=== PATIENT | male | born 1940 | race Caucasian/White ===

== ENCOUNTER → 2017-12-16 | Outpatient (CLI) | payer OTHER, BC ==
[~2017-12-16] MED LIST: AMLO5TAB2 PO; ASPI81TA28 PO; CHOL2000 PO; FURO-85 PO; INSDGI SC; INSU100I2 SC; LEVO125T5 PO; LOSA100T65 PO; OMEP20TA14 PO; SIMV40TA2 PO; TAMS0.4C38 PO; [UNRECOGNIZED DRUG - CODE] SC
--- NOTE | 2017-12-16 10:50 | DIAGNOSTIC IMAGING REPORT ---
R FINGER(S) MIN 2 VIEWS HISTORY: 77 years-old Male RIGHT INDEX FINGER PAIN acute right index finger pain COMPARISON: None available TECHNIQUE: 3 views of the right index finger FINDINGS: Mild metacarpophalangeal and interphalangeal degenerative changes without acute fracture or dislocation. 2 mm radiodensity dorsal to the second metatarsal head suggests fragmented osteophyte. Mild soft tissue swelling. IMPRESSION: Mild soft tissue swelling without fracture. The above report was generated using voice recognition software. It may contain grammatical, syntax or spelling errors. Electronically signed by: Prabhakar Sandhu M.D. 12/16/2017 10:48 AM Dictated Date/Time: 12/16/2017 10:47 AM
== END | disposition home or self-care (01) ==
LOC: C.RDSM 17:45
PROVIDERS: ATTEND Family Medicine
DX: M79.644 Pain in right finger(s) (principal)

== ENCOUNTER 2022-01-21 07:52 | Inpatient (IN) ==
--- NOTE | 2022-01-21 08:09 | Emergency Department Note ---
Impression & Plan LUE weakness, HTN (hypertension), Anemia, High serum chloride ED Provider Note NAME: EMMY ALEXANDER AGE: 81 SEX: M : 1940 ARRIVES VIA: Walk-In INFORMANT: Patient ED PROVIDER(S): Fredo Redd DO CHIEF COMPLAINT: left shoulder weakness HPI: Patient is an 81-year-old male with a past medical history of diabetes, hypertension, CKD that presents the ER for left arm weakness. He went to bed last night around 10 PM. He is not sure exactly when he fell asleep but he thinks it was some around 4 AM. He notes when he woke up this morning he was having trouble lifting his left arm above 90 degrees. He has no pain in the shoulder. He has chronic neck issues. Denies any headache or change in vision. No chest pain or shortness of breath. No nausea, vomiting, or diarrhea. No dysuria, urgency, or frequency. No other exacerbating or remitting factors. ROS: See above HPI for pertinent positives & negatives. A total of 10 systems reviewed and were otherwise negative. PAST MEDICAL HISTORY:See Below PAST SURGICAL HISTORY:See Below FAMILY HISTORY:See Below SOCIAL HISTORY:See Below HOME MEDICATIONS:See Below ALLERGIES:See Below VITALS:See Below PHYSICAL EXAMINATION: GENERAL: Sitting up in bed, alert, well appearing, well nourished, no distress, non-toxic EYE EXAM: normal conjunctiva. PERRL and EOM's intact. OROPHARYNX: no exudate, no erythema, lips, buccal mucosa, and tongue normal and mucous membranes are moist NECK: supple, no nuchal rigidity, no adenopathy, non-tender LUNGS: Clear to auscultation. Normal chest wall mechanics HEART: no murmurs, S1 normal and S2 normal ABDOMEN: abdomen soft, non-tender, normo-active bowel sounds, no masses, no rebound or guarding. BACK: Back is symmetrical on inspection and there is no deformity, no midline tenderness, no CVA tenderness. SKIN: no rashes and no bruising UPPER EXTREMITIES: upper extremities are grossly normal. LOWER EXTREMITIES: No pitting edema. NEURO EXAM: Normal sensorium, cranial nerves II-XII intact, normal speech, trouble with AB ducting left arm greater than 90 degrees. No weakness of legs. No drift. Finger to nose intact. Gross sensation intact. MEDICAL DECISION MAKING: Patient is an 81-year-old male who presents ER for left upper extremity weakness. On evaluation he has weakness with abduction greater than 90 degrees. IV was established blood work was obtained. On that to have a telestroke evaluation however per charge only possibility was to call a stroke alert. This gentleman is not a tPA candidate based on his NIH and last known well. I do favor that this likely musculoskeletal but cannot be certain consequently he did want a neurologic evaluation. Labs show no leukocytosis. Mild anemia 11.9. INR unremarkable. BMP with creatinine 1.9. LFTs bilirubin was unremarkable. COVID was negative. CT angios of the head and neck show some mild internal carotid disease. Patient was evaluated by neurology. They recommended MRIs and Dopplers of the carotids and admission for further work-up. Based on the results they will further discuss Plavix and additional treatment. Discussed with Belia for further evaluation. Triage Nursing notes reviewed. Limited review of prior medical records performed Vital Signs: reviewed and remarkable for HTN Differential diagnosis: Differential Diagnosis includes but is not limited to ischemic Stroke, hemorrhagic stroke, bells palsy, mass, neoplasm, migraine headache, seizure, subarachnoid hemorrhage, TIA, and transient global amnesia. ER treatment provided: See below Diagnostics interpreted by me: ECG: SR with a rate of 68 Normal axis No PVCs QTC 487 Cardiac Monitoring: An order was placed for continuous cardiac monitoring. The monitor shows a rate of 70 with sinus rhythm. Laboratory studies: As stated above and show below. Imaging studies: CT angios of the head and neck showed no acute pathology Consultation(s): [facility] Discussed with Belia from [facility] service Procedures: none Critical Care: None Past Med/Surg History Medical History (Updated 01/21/22 @ 13:08 by Fredo Redd DO) Cardiac murmur HX OF PREVIOUSLY AUSCULTATED MURMUR. PT HAD ECHO AND CARDIAC WORKUP. FOLLOWS WITH DR. VINES CKD (chronic kidney disease) stage 4, GFR 15-29 ml/min Diabetes mellitus, type 2 Diverticular disease Fatty liver GERD (gastroesophageal reflux disease) History of skin cancer EXCISION FROM THIGH Hyperlipidemia Hypertension Hypothyroidism Secondary hyperparathyroidism Surgical History History of arthroscopy B/L SHOULDER REPAIRS History of cataract extraction with lens replacement History of cholecystectomy History of colonoscopy History of laminectomy CERVIAL LAMI S/T SPINAL STENOSIS. History of prostate surgery HX OF GREENLIGHT TURP 10+ YEARS AGO History of surgery on arm LIGAMENT History of tonsillectomy Family History (Updated 01/21/22 @ 10:02 by Beila Vitale PA-C) Father Colorectal cancer Mother No problems noted. Denies family history of Stroke Social History Smoking Status: Never smoker Cigarettes Per Day: 0; Second Hand Exposure: No; Hx Alcohol Use: Yes Alcohol type: other Hx Substance Use: No Preferred Language: Polish Communication Ability: Effective Stereotyper Required: No Beliefs That Will Affect Care: None Current Living Situation: Spouse Current Living Situation Comment: Other Information That Helps Us Care for You: No Feels Safe at Home: Yes Safety Concerns: Feels Safe At This Time Assistive Devices: None Allergies Allergies Allergy/AdvReac Type Severity Reaction Status Date / Time Penicillins Allergy Unknown HIVES Verified 01/21/22 09:55 SULFA DRUGS Allergy Unknown GI issues Uncoded 01/21/22 09:55 Home Meds Home Medications Medication Instructions Recorded Confirmed amlodipine 5 mg tablet 5 mg PO QAM 01/02/19 01/21/22 cholecalciferol (vitamin D3) 50 2,000 unit PO QAM 01/02/19 01/21/22 mcg (2,000 unit) capsule furosemide 20 mg tablet 40 mg PO DAILY 01/02/19 01/21/22 insulin glargine U-300 conc 300 50 unit SUBCUT BID 01/02/19 01/21/22 unit/mL (1.5 mL) subcutaneous pen (Toujeo SoloStar U-300 Insulin) insulin lispro 100 unit/mL 40 unit SUBCUT AC 01/02/19 01/21/22 subcutaneous pen (Humalog KwikPen (U-100) Insulin) omeprazole 20 mg capsule,delayed 20 mg PO QAM 01/02/19 01/21/22 release pramlintide 2,700 mcg/2.7 mL 120 mcg SUBCUT BID 01/02/19 01/21/22 subcutaneous pen injector (SymlinPen 120) alfuzosin 10 mg tablet,extended 10 mg PO DAILY 01/21/22 01/21/22 release 24 hr allopurinol 100 mg tablet 100 mg PO BID 01/21/22 01/21/22 aspirin 81 mg chewable tablet 81 mg PO DAILY 01/21/22 01/21/22 coenzyme Q10 100 mg capsule 100 mg PO DAILY 01/21/22 01/21/22 finasteride 5 mg tablet 5 mg PO DAILY 01/21/22 01/21/22 levothyroxine 137 mcg tablet 137 mcg PO DAILY 01/21/22 01/21/22 losartan 50 mg tablet 50 mg PO DAILY 01/21/22 01/21/22 omega-3 fatty acids 1,000 mg PO BID 01/21/22 01/21/22 rosuvastatin 20 mg tablet 20 mg PO DAILY 01/21/22 01/21/22 sildenafil 50 mg tablet 50 mg PO USEASDIRECTD 01/21/22 01/21/22 Results & Data (ED) Vital Signs Vital Signs - 24 hr 01/21/22 07:55 01/21/22 08:38 01/21/22 08:45 Temperature 36.6 C Temperature Source Temporal Artery Scan Pulse Rate 74 66 73 Pulse Rate from SpO2 Sensor 66 68 Respiratory Rate 16 25 H 19 Blood Pressure 171/84 H 145/81 H 155/78 H Blood Pressure Mean 113 102 103 Pulse Oximetry 95 97 96 Oxygen Delivery Method Room Air Room Air Sepsis Recent Fever Within 48 Hours No Sepsis New/Unexplained Change in Mental Status No Sepsis Action Taken by Nursing No Action Required 01/21/22 09:00 01/21/22 09:15 01/21/22 09:30 Temperature Temperature Source Pulse Rate 66 63 66 Pulse Rate from SpO2 Sensor 63 63 64 Respiratory Rate 15 21 Blood Pressure 154/77 H 158/89 H 163/89 H Blood Pressure Mean 102 112 113 Pulse Oximetry 98 96 95 Oxygen Delivery Method Sepsis Recent Fever Within 48 Hours Sepsis New/Unexplained Change in Mental Status Sepsis Action Taken by Nursing Laboratory Data Result diagrams: 01/21/22 08:08 01/21/22 08:08 Lab Results 01/21/22 01/21/22 01/21/22 Range/Units 08:08 08:08 08:08 WBC 5.80 (4.8-10.8) K/uL RBC 3.90 L (4.7-6.1) M/uL Hgb 11.9 L (14.0-18.0) g/dL Hct 34.2 L (42-52) % MCV 87.7 (80-100) fL MCH 30.5 (25-34) pg MCHC 34.8 (32-36) g/dL RDW Std Deviation 44.8 (36.4-46.3) fL RDW Coeff of Rosalee 14.0 (11.5-14.5) % Plt Count 183 (130-400) K/uL MPV 9.5 (7.4-10.4) fL Immature Gran % (Auto) 0.2 % Neut % (Auto) 60.8 % Lymph % (Auto) 25.7 % Sierra % (Auto) 7.4 % Eos % (Auto) 5.7 % Baso % (Auto) 0.2 % Neut # (Auto) 3.53 (1.4-6.5) K/uL Lymph # (Auto) 1.49 (1.2-3.4) K/uL Sierra # (Auto) 0.43 (0.11-0.59) K/uL Eos # (Auto) 0.33 (0-0.5) K/uL Baso # (Auto) 0.01 (0-0.2) K/uL Immature Gran # (Auto) 0.01 (0.00-0.02) K/uL PT 10.5 (9.0-12.0) Seconds INR 1.0 (0.9-1.1) APTT 24.3 (21.0-31.0) Seconds PTT Ratio 0.9 Sodium 140 (136-145) mmol/L Potassium 3.5 (3.5-5.1) mmol/L Chloride 109 H (98-107) mmol/L Carbon Dioxide 22 (21-32) mmol/L Anion Gap 9 (3-11) BUN 33 H (6-23) mg/dl Creatinine 1.90 H (0.6-1.4) mg/dl Est Cr Clr Drug Dosing 40.5 ml/min Est GFR ( Amer) 37.5 ml/min Est GFR (Non-Af Amer) 32.3 ml/min BUN/Creatinine Ratio 17.4 (10-20) Glucose 144 H (70-99(Fasting)) mg/dl Calcium 9.4 (8.5-10.1) mg/dl Magnesium 1.9 (1.7-2.4) mg/dl Total Bilirubin 0.5 (0.2-1.0) mg/dl AST 21 (13-39) U/L ALT 24 (7-52) U/L Alkaline Phosphatase 51 (34-104) U/L Troponin I High Sens 24.0 H (0-20) pg/ml Total Protein 6.9 (6.0-8.3) gm/dl Albumin 4.1 (3.4-5.0) gm/dl Globulin 2.8 (2.5-4.0) gm/dl Albumin/Globulin Ratio 1.5 (0.9-2) Administered Medications Discontinued Medications Aspirin (Aspirin 81 Mg Ectab) 81 mg PO NOW STA Stop: 01/21/22 10:23 Last Admin: 01/21/22 11:21 Dose: Not Given Documented by: [id number] Aspirin (Aspirin 325 Mg Ectab) 325 mg PO NOW STA Stop: 01/21/22 10:42 Last Admin: 01/21/22 11:33 Dose: 325 mg Documented by: [id number] Aspirin (Aspirin Chew 324 Mg) Confirm Administered Dose 324 mg .ROUTE .STK-MED ONE Stop: 01/21/22 10:44 Last Admin: 01/21/22 11:20 Dose: Not Given Documented by: [id number] Gadobutrol (Gadobutrol 65ml Vial) 12.3 ml IV ONCE ONE Stop: 01/21/22 12:25 Last Admin: 01/21/22 12:14 Dose: 12.3 ml Documented by: [id number] Lorazepam (Lorazepam 2 Mg/1 Ml Vial) 0.5 mg IV ONE ONE Stop: 01/21/22 11:01 Last Admin: 01/21/22 11:31 Dose: 0.5 mg Documented by: [id number] Imaging Data Radiologist's Impression: Chest X-Ray 01/21/22 08:06 XR chest 1V portable CLINICAL HISTORY: Stroke Like Symptoms COMPARISON STUDY: Chest radiograph December 09, 2011. FINDINGS: Lung volumes are normal. Lungs are clear. There is no pneumothorax or pleural effusion. Borderline cardiomegaly. Mediastinal contours are normal. There is no evidence for pulmonary edema. IMPRESSION: No acute cardiopulmonary findings. ACT 112: Negative or not required by law. Electronically signed by: Zia Thomas M.D. 01/21/2022 8:[address] 01/21/22 08:06 CT OF THE HEAD WITHOUT CONTRAST CLINICAL HISTORY: Stroke Like Symptoms. Left arm weakness. COMPARISON STUDY: No previous studies for comparison. TECHNIQUE: Helical axial images of the head were obtained without IV contrast. Automated exposure control was utilized for the study. A dose lowering technique was utilized adhering to the principles of ALARA. FINDINGS: No acute intracranial hemorrhage, midline shift or mass effect is present. White matter hypodensities favor small vessel disease. The ventricular system is unremarkable. The basal cisterns are patent. No extra-axial colle ctions are present. There are no findings to suggest acute dural sinus thrombosis or acute territorial infarct. No significant calvarial abnormalities are present. There is mild sinus mucosal thickening. IMPRESSION: No acute intracranial findings. ACT 112: Negative or not required by law. Electronically signed by: Zia Thomas M.D. 01/21/2022 8:43 AM Head CTA 01/21/22 08:06 CT angio head w con CLINICAL HISTORY: 81 years-old Male with Stroke Like Symptoms. Acute strokelike symptoms COMPARISON STUDY: CT head and CTA head and neck studies of same day TECHNIQUE: Following the IV administration of 120 mL cc of Optiray, CT angiogram of the brain was performed from the skull base to the vertex. Images are revie wed in the axial, sagittal, and coronal planes. 3-D MIPS images are created and assessed. IV contrast was administered without complication. All measurements were obtained according to NASCET criteria. A dose lowering technique was utilized adhering to the principles of ALARA. CT DOSE: 1236.28 mGy.cm FINDINGS: CT ANGIOGRAM OF THE BRAIN: Streak artifact from dental amalgam hardware limits the study. Atherosclerosis of the cavernous, clinoid and supraclinoid segments without high-grade stenosis. There is approximately 50% stenosis of the right supraclinoid segment, image 104. The imaged bilateral internal carotid arteries are patent. The bilateral anterior and middle cerebral arteries are also patent. Atherosclerosis of the V4 segments of the vertebral arteries without high-grade stenosis. The verteb robasilar system and posterior cerebral arteries are widely patent. There is no aneurysm, high-grade stenosis, or proximal branch occlusion identified. Dural sinuses appear patent. Mild mucosal thickening of the maxillary sinuses. IMPRESSION: Unremarkable CTA of the head. ACT 112: Negative or not required by law. The above report was generated using voice recognition software. It may contain grammatical, syntax or spelling errors. Electronically signed by: Juanpablo Sandhu M.D. 01/21/2022 8:55 AM Neck CTA 01/21/22 08:06 CT ANGIOGRAPHY OF THE NECK WITH CONTRAST CLINICAL HISTORY: Stroke Like Symptoms COMPARISON STUDY: No previous studies for comparison. Technique: CT angiography of the carotid and vertebral arteries was obtained using Optiray and 3D reconstruction on an independent workstation. NASCET criteria was utilized. Automated exposure control was utilized for the study. A dose lowering technique was utilized adhering to the principles of ALARA. Findings: Visualized portions of the lung apices are unremarkable. There is no cervical lymphadenopathy. Postoperative findings within the cervical spine are noted. There is no acute cervical spine fracture. There is moderate plaque within the left carotid bifurcation without stenosis. Origins of the bilateral vertebral arteries are suboptimally assessed on this exam given motion artifact. There is no dissection within the neck. No aneurysm within the neck. Note is made of extensive calcified and noncalcified plaque within the right carotid bifurcation. This results in 80% stenosis of the proximal right internal carotid artery. Stenosis extends for 3 mm. The caliber of the vessel at site of stenosis is 1.3 mm. The caliber of the vessel distally is 5 mm. IMPRESSION: 1. 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 2. Moderate plaque within the left carotid bifurcation without stenosis. 3. Suboptimal evaluation of the vertebral artery origins due to motion artifact. ACT 112: Negative or not required by law. Electronically signed by: Zia Thomas M.D. 01/21/2022 8:50 AM Discharge Plan Visit Data Chief Complaint: Neuro Symptoms/Deficit Stated Complaint: L ARM ISSUES, CAN'T LIFT OR USE IT, NO PAIN ED Provider: Fredo Redd Discharge Problem: LUE weakness, HTN (hypertension), Anemia, High serum chloride Patient Disposition: Admitted As Inpatient Discharge Instructions Interventions: ED Discharge Assessment Last Done: 01/21/22 11:58 Discharge Problem: HTN (hypertension) Qualifiers: Hypertension type: unspecified Qualified Code(s): I10 - Essential (primary) hypertension Anemia Qualifiers: Anemia type: unspecified type Qualified Code(s): D64.9 - Anemia, unspecified
[2022-01-21 08:30] LABS: Basophils # (auto) 0.01 K/uL (0-0.2); Basophils % (auto) 0.2 %; Eosinophils # (auto) 0.33 K/uL (0-0.5); Eosinophils % (auto) 5.7 %; Hematocrit (blood only) 34.2 % (42-52); Hemoglobin 11.9 g/dL (14.0-18.0); Immature Granulocytes # (auto) 0.01 K/uL (0.00-0.02); Immature Granulocytes % (auto) 0.2 %; Lymphocytes # (auto) 1.49 K/uL (1.2-3.4); Lymphocytes % (auto) 25.7 %; Mean Corpuscular Hemoglobin 30.5 pg (25-34); Mean Corpuscular Hgb Conc 34.8 g/dL (32-36); Mean Corpuscular Volume 87.7 fL (80-100); Mean Platelet Volume 9.5 fL (7.4-10.4); Monocytes # (auto) 0.43 K/uL (0.11-0.59); Monocytes % (auto) 7.4 %; Neutrophils # (auto) 3.53 K/uL (1.4-6.5); Neutrophils % (auto) 60.8 %; Platelet Count 183 K/uL (130-400); RDW Standard Deviation 44.8 fL (36.4-46.3)
[2022-01-21 08:39] LABS: Partial Thromboplastin Ratio 0.9; Partial Thromboplastin Time 24.3 Seconds (21.0-31.0); Prothrombin Time 10.5 Seconds (9.0-12.0)
--- NOTE | 2022-01-21 08:44 | CT Scan Report ---
CT OF THE HEAD WITHOUT CONTRAST CLINICAL HISTORY: Stroke Like Symptoms. Left arm weakness. COMPARISON STUDY: No previous studies for comparison. TECHNIQUE: Helical axial images of the head were obtained without IV contrast. Automated exposure con trol was utilized for the study. A dose lowering technique was utilized adhering to the principles o f ALARA. FINDINGS: No acute intracranial hemorrhage, midline shift or mass effect is present. White matter hyp odensities favor small vessel disease. The ventricular system is unremarkable. The basal cisterns are patent. No extra-axial collections are present. There are no findings to suggest acute dural sinus t hrombosis or acute territorial infarct. No significant calvarial abnormalities are present. There is mild sinus mucosal thickening. IMPRESSION: No acute intracranial findings. ACT 112: Negative or not required by law. Electronically signed by: Zia Thomas M.D. 01/21/2022 8:43 AM
--- NOTE | 2022-01-21 08:51 | CT Scan Report ---
CT ANGIOGRAPHY OF THE NECK WITH CONTRAST CLINICAL HISTORY: Stroke Like Symptoms COMPARISON STUDY: No previous studies for comparison. Technique: CT angiography of the carotid and vertebral arteries was obtained using Optiray and 3D rec onstruction on an independent workstation. NASCET criteria was utilized. Automated exposure control was utilized for the study. A dose lowering technique was utilized adhering to the principles of ALA RA. Findings: Visualized portions of the lung apices are unremarkable. There is no cervical lymphadenopat hy. Postoperative findings within the cervical spine are noted. There is no acute cervical spine frac ture. There is moderate plaque within the left carotid bifurcation without stenosis. Origins of the b ilateral vertebral arteries are suboptimally assessed on this exam given motion artifact. There is no dissection within the neck. No aneurysm within the neck. Note is made of extensive calcified and non calcified plaque within the right carotid bifurcation. This results in 80% stenosis of the proximal r ight internal carotid artery. Stenosis extends for 3 mm. The caliber of the vessel at site of stenosi s is 1.3 mm. The caliber of the vessel distally is 5 mm. IMPRESSION: 1. 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 2. Moderate plaque within the left carotid bifurcation without stenosis. 3. Suboptimal evaluation of the vertebral artery origins due to motion artifact. ACT 112: Negative or not required by law. Electronically signed by: Zia Thomas M.D. 01/21/2022 8:50 AM
--- NOTE | 2022-01-21 08:52 | XRay Report ---
XR chest 1V portable CLINICAL HISTORY: Stroke Like Symptoms COMPARISON STUDY: Chest radiograph December 09, 2011. FINDINGS: Lung volumes are normal. Lungs are clear. There is no pneumothorax or pleural effusion. Bor derline cardiomegaly. Mediastinal contours are normal. There is no evidence for pulmonary edema. IMPRESSION: No acute cardiopulmonary findings. ACT 112: Negative or not required by law. Electronically signed by: Zia Thomas M.D. 01/21/2022 8:50 AM
--- NOTE | 2022-01-21 08:56 | CT Scan Report ---
CT angio head w con CLINICAL HISTORY: 81 years-old Male with Stroke Like Symptoms. Acute strokelike symptoms COMPARISON STUDY: CT head and CTA head and neck studies of same day TECHNIQUE: Following the IV administration of 120 mL cc of Optiray, CT angiogram of the brain was per formed from the skull base to the vertex. Images are reviewed in the axial, sagittal, and coronal mary jaleel. 3-D MIPS images are created and assessed. IV contrast was administered without complication. All measurements were obtained according to NASCET criteria. A dose lowering technique was utilized adhe ring to the principles of ALARA. CT DOSE: 1236.28 mGy.cm FINDINGS: CT ANGIOGRAM OF THE BRAIN: Streak artifact from dental amalgam hardware limits the study. Atherosclerosis of the cavernous, clin oid and supraclinoid segments without high-grade stenosis. There is approximately 50% stenosis of the right supraclinoid segment, image 104. The imaged bilateral internal carotid arteries are patent. Th e bilateral anterior and middle cerebral arteries are also patent. Atherosclerosis of the V4 segments of the vertebral arteries without high-grade stenosis. The vertebrobasilar system and posterior cere bral arteries are widely patent. There is no aneurysm, high-grade stenosis, or proximal branch occlus ion identified. Dural sinuses appear patent. Mild mucosal thickening of the maxillary sinuses. IMPRESSION: Unremarkable CTA of the head. ACT 112: Negative or not required by law. The above report was generated using voice recognition software. It may contain grammatical, syntax o r spelling errors. Electronically signed by: Juanpablo Sandhu M.D. 01/21/2022 8:55 AM
[2022-01-21 09:02] LABS: Albumin Globulin Ratio 1.5 (0.9-2); Albumin Level 4.1 gm/dl (3.4-5.0); BUN Creatinine Ratio 17.4 (10-20); Bilirubin,Total 0.5 mg/dl (0.2-1.0); Calcium 9.4 mg/dl (8.5-10.1); Creatinine Clr Calc Pharmacy 40.5 ml/min; Est GFR (African American) 37.5 ml/min; Est GFR (Non-African American) 32.3 ml/min; Globulin 2.8 gm/dl (2.5-4.0); Magnesium 1.9 mg/dl (1.7-2.4); Potassium 3.5 mmol/L (3.5-5.1); Total Protein 6.9 gm/dl (6.0-8.3)
--- NOTE | 2022-01-21 09:47 | History & Physical Report ---
Date of Service January 21, 2022 Assessment & Plan (1) LUE weakness: (2) Internal carotid artery stenosis: (3) Diabetes mellitus, type 2: (4) Elevated troponin: (5) Hypertension: (6) CKD (chronic kidney disease) stage 4, GFR 15-29 ml/min: Plan: This is an 81-year-old male who has a significant past medical history of insulin-dependent T2DM, HTN, HLD, chronic HFpEF, mild aortic stenosis, known PFO, diabetic polyneuropathy, CKD stage IV, secondary hyperparathyroidism, anemia of renal disease and BPH who presents to ED secondary to left upper extremity weakness x1 day. Left upper extremity weakness -symptoms mostly resolved, questionable TIA versus MSK in origin Severe right internal carotid artery stenosis 80% Admit to telemetry Consult neurology Give 325 mg ASA now, patient did not take his morning baby aspirin Will await further antiplatelet recommendations per neurology Patient already on high intensity statin of Crestor 20 mg daily MRI brain Obtain echocardiogram Carotid Dopplers Vascular consult given his severe right ICA stenosis PT/OT/ST Elevated troponin Patient denies chest pain, EKG without ischemic change Cycle for completeness T2DM, insulin-dependent Last A1c 6.5 on 11/17/2021 Obtain A1c in a.m. Lantus/NovoLog per protocol hold home regimen of Toujeo, Humalog and Symlin HTN Blood pressure controlled Continue amlodipine and losartan Chronic HFpEF Mild aortic stenosis Prior diagnosis of PFO Euvolemic Last echocardiogram 05/2021 revealed EF 55 to 59%, moderate left ventricular con centric hypertrophy, mild aortic stenosis, grade 1 diastolic dysfunction Daily weights, strict I's and O's Continue losartan and Lasix CKD stage IV Baseline creatinine 2.1 Monitor Anemia of renal disease Hemoglobin stable 11.9 Monitor DVT prophylaxis: SCD/TEDS for now, if MRI negative add SQ Heparin Dispo: PCU, stroke w/u, likely d/c to home 1-2 days, with neuro and vascular follow up PCP: Jerry FULL CODE Pt was seen and examined in collaboration with Dr. Townsend, please see addendum History of Present Illness Chief Complaint: Left upper extremity weakness x1 day. Primary Care Provider: Connor Edwards MD This is an 81-year-old male who has a significant past medical history of insulin-dependent T2DM, HTN, HLD, chronic HFpEF, mild aortic stenosis, known PFO, diabetic polyneuropathy, CKD stage IV, secondary hyperparathyroidism, anemia of renal disease and BPH who presents to ED secondary to left upper extremity weakness x1 day. He woke up this morning and felt his left arm was not useable. He could not go above 90 degrees. He even had a hard time getting out of bed. He know has improved ROM to L arm. He denies any injury or sleeping wrong. He denies numbness/tingling. He describes his arm as feeling, "strange." He has never had this happen before. When he would try to put arm up it just, "flopped back down." He awoke this a.m. at 6am. He feels like he was lying on his left side. He does feel he has some weakness still to L arm but feel its 70% improved. He denies REYNOSO, dizziness, blurred vision, trouble swallowing or speaking, new numbness, f/c/s, chest pain, sob, cough, n/v/d, abd pain, constipation, dysuria, increased urg/freq with urination, hematuria, melena, hematochezia. He has neuropathy and does have numbness to legs. The ball of his foot forward is numbness/lack of sensation. He denies current pain radiating down legs. He does get injection to back, L3-L5 epidural steroid inj 1 month ago. He denies tobacco use, recreational drugs. He does drink alcohol occasionally, beer. In ED patient remained hemodynamically stable. Initial CT head was negative for acute abnormality. Head CTA was unremarkable. Neck CTA revealed 80% severe right internal carotid artery stenosis. Lab work revealed a stable creatinine at 1.9, mildly elevated troponin at 24 and stable H&H 11.9 and 34.2. Allergies Allergy/AdvReac Type Severity Reaction Status Date / Time Penicillins Allergy Unknown HIVES Verified 01/21/22 09:55 SULFA DRUGS Allergy Unknown GI issues Uncoded 01/21/22 09:55 Home Medications Medication Instructions Recorded Confirmed Type amlodipine 5 mg tablet 5 mg PO QAM 01/02/19 01/21/22 History cholecalciferol (vitamin D3) 50 2,000 unit PO QAM 01/02/19 01/21/22 History mcg (2,000 unit) capsule furosemide 20 mg tablet 40 mg PO DAILY 01/02/19 01/21/22 History insulin glargine U-300 conc 300 50 unit SUBCUT BID 01/02/19 01/21/22 History unit/mL (1.5 mL) subcutaneous pen (Toujeo SoloStar U-300 Insulin) insulin lispro 100 unit/mL 40 unit SUBCUT AC 01/02/19 01/21/22 History subcutaneous pen (Humalog KwikPen (U-100) Insulin) omeprazole 20 mg capsule,delayed 20 mg PO QAM 01/02/19 01/21/22 History release pramlintide 2,700 mcg/2.7 mL 120 mcg SUBCUT BID 01/02/19 01/21/22 History subcutaneous pen injector (SymlinPen 120) alfuzosin 10 mg tablet,extended 10 mg PO DAILY 01/21/22 01/21/22 History release 24 hr allopurinol 100 mg tablet 100 mg PO BID 01/21/22 01/21/22 History aspirin 81 mg chewable tablet 81 mg PO DAILY 01/21/22 01/21/22 History coenzyme Q10 100 mg capsule 100 mg PO DAILY 01/21/22 01/21/22 History finasteride 5 mg tablet 5 mg PO DAILY 01/21/22 01/21/22 History levothyroxine 137 mcg tablet 137 mcg PO DAILY 01/21/22 01/21/22 History losartan 50 mg tablet 50 mg PO DAILY 01/21/22 01/21/22 History omega-3 fatty acids 1,000 mg PO BID 01/21/22 01/21/22 History rosuvastatin 20 mg tablet 20 mg PO DAILY 01/21/22 01/21/22 History sildenafil 50 mg tablet 50 mg PO USEASDIRECTD 01/21/22 01/21/22 History Past Med/Surg History Medical History (Updated 01/21/22 @ 10:52 by Belia Vitale PA-C) Cardiac murmur HX OF PREVIOUSLY AUSCULTATED MURMUR. PT HAD ECHO AND CARDIAC WORKUP. FOLLOWS WITH DR. VINES CKD (chronic kidney disease) stage 4, GFR 15-29 ml/min Diabetes mellitus, type 2 Diverticular disease Fatty liver GERD (gastroesophageal reflux disease) History of skin cancer EXCISION FROM THIGH Hyperlipidemia Hypertension Hypothyroidism Secondary hyperparathyroidism Surgical History History of arthroscopy B/L SHOULDER REPAIRS History of cataract extraction with lens replacement History of cholecystectomy History of colonoscopy History of laminectomy CERVIAL LAMI S/T SPINAL STENOSIS. History of prostate surgery HX OF GREENLIGHT TURP 10+ YEARS AGO History of surgery on arm LIGAMENT History of tonsillectomy Family History (Updated 01/21/22 @ 10:02 by Belia Vitale PA-C) Father Colorectal cancer Mother No problems noted. Denies family history of Stroke Social History Smoking Status: Never smoker Cigarettes Per Day: 0; Second Hand Exposure: No; Hx Alcohol Use: Yes Alcohol type: other Hx Substance Use: No Preferred Language: [place] Communication Ability: Effective Urogynaecologist Required: No Beliefs That Will Affect Care: None Current Living Situation: Spouse Feels Safe at Home: Yes Assistive Devices: Glasses Review of Systems Review of Systems: All systems reviewed & are unremarkable except as noted in HPI & below Physical Exam Physical Exam: please refer to Dr. Townsend addendum regarding physical exam Results & Data Results & Data ([facility]) Vital Signs (Past 12 Hours) Vital Signs Temp Pulse Resp BP Pulse Ox 01/21/22 08:38 66 25 H 145/81 H 97 01/21/22 07:55 36.6 C 74 16 171/84 H 95 Diagnostic Findings Chest X-Ray 01/21/22 08:06 XR chest 1V portable CLINICAL HISTORY: Stroke Like Symptoms COMPARISON STUDY: Chest radiograph December 09, 2011. FINDINGS: Lung volumes are normal. Lungs are clear. There is no pneumothorax or pleural effusion. Borderline cardiomegaly. Mediastinal contours are normal. There is no evidence for pulmonary edema. IMPRESSION: No acute cardiopulmonary findings. ACT 112: Negative or not required by law. Electronically signed by: Zia Thomas M.D. 01/21/2022 8:[address] 01/21/22 08:06 CT OF THE HEAD WITHOUT CONTRAST CLINICAL HISTORY: Stroke Like Symptoms. Left arm weakness. COMPARISON STUDY: No previous studies for comparison. TECHNIQUE: Helical axial images of the head were obtained without IV contrast. Automated exposure control was utilized for the study. A dose lowering technique was utilized adhering to the principles of ALARA. FINDINGS: No acute intracranial hemorrhage, midline shift or mass effect is present. White matter hypodensities favor small vessel disease. The ventricular system is unremarkable. The basal cisterns are patent. No extra-axial collections are present. There are no findings to suggest acute dural sinus thrombosis or acute territorial infarct. No significant calvarial abnormalities are present. There is mild sinus mucosal thickening. IMPRESSION: No acute intracranial findings. ACT 112: Negative or not required by law. Electronically signed by: Zia Thomas M.D. 01/21/2022 8:43 AM Head CTA 01/21/22 08:06 CT angio head w con CLINICAL HISTORY: 81 years-old Male with Stroke Like Symptoms. Acute strokelike symptoms COMPARISON STUDY: CT head and CTA head and neck studies of same day TECHNIQUE: Following the IV administration of 120 mL cc of Optiray, CT angiogram of the brain was performed from the skull base to the vertex. Images are reviewed in the axial, sagittal, and coronal planes. 3-D MIPS images are created and assessed. IV contrast was administered without complication. All measurements were obtained according to NASCET criteria. A dose lowering technique was utilized adhering to the principles of ALARA. CT DOSE: 1236.28 mGy.cm FINDINGS: CT ANGIOGRAM OF THE BRAIN: Streak artifact from dental amalgam hardware limits the study. Atherosclerosis of the cavernous, clinoid and supraclinoid segments without high-grade stenosis. There is approximately 50% stenosis of the right supraclinoid segment, image 104. The imaged bilateral internal carotid arteries are patent. The bilateral anterior and middle cerebral arteries are also patent. Atherosclerosis of the V4 segments of the vertebral arteries without high-grade stenosis. The vertebrobasilar system and posterior cerebral arteries are widely patent. There is no aneurysm, high-grade stenosis, or proximal branch occlusion identified. Dural sinuses appear patent. Mild mucosal thickening of the maxillary sinuses. IMPRESSION: Unremarkable CTA of the head. ACT 112: Negative or not required by law. The above report was generated using voice recognition software. It may contain grammatical, syntax or spelling errors. Electronically signed by: Juanpablo Sandhu M.D. 01/21/2022 8:55 AM Neck CTA 01/21/22 08:06 CT ANGIOGRAPHY OF THE NECK WITH CONTRAST CLINICAL HISTORY: Stroke Like Symptoms COMPARISON STUDY: No previous studies for comparison. Technique: CT angiography of the carotid and vertebral arteries was obtained using Optiray and 3D reconstruction on an independent workstation. NASCET criteria was utilized. Automated exposure control was utilized for the study. A dose lowering technique was utilized adhering to the principles of ALARA. Findings: Visualized portions of the lung apices are unremarkable. There is no cervical lymphadenopathy. Postoperative findings within the cervical spine are noted. There is no acute cervical spine fracture. There is moderate plaque within the left carotid bifurcation without stenosis. Origins of the bilateral vertebral arteries are suboptimally assessed on this exam given motion artifact. There is no dissection within the neck. No aneurysm within the neck. Note is made of extensive calcified and noncalcified plaque within the right carotid bifurcation. This results in 80% stenosis of the proximal right internal carotid artery. Stenosis extends for 3 mm. The caliber of the vessel at site of stenosis is 1.3 mm. The caliber of the vessel distally is 5 mm. IMPRESSION: 1. 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 2. Moderate plaque within the left carotid bifurcation without stenosis. 3. Suboptimal evaluation of the vertebral artery origins due to motion artifact. ACT 112: Negative or not required by law. Electronically signed by: Zia Thomas M.D. 01/21/2022 8:50 AM ECG Rate (beats per minute): 68 Rhythm: normal sinus Additional Comments: QTC prolongation 487ms COVID-19 Results Results COVID-19 Adm Lab Results: RBC 3.90 M/uL (4.7-6.1) L 01/21/22 WBC 5.80 K/uL (4.8-10.8) 01/21/22 Hgb 11.9 g/dL (14.0-18.0) L 01/21/22 Hct 34.2 % (42-52) L 01/21/22 Plt Count 183 K/uL (130-400) 01/21/22 Neutrophils (%) (Auto) 60.8 % 01/21/22 Lymphocytes (%) (Auto) 25.7 % 01/21/22 Monocytes # (Auto) 0.43 K/uL (0.11-0.59) 01/21/22 Eosinophils # (Auto) 0.33 K/uL (0-0.5) 01/21/22 Immature Granulocyte % (Auto) 0.2 % 01/21/22 Neutrophils # (Auto) 3.53 K/uL (1.4-6.5) 01/21/22 Lymphocytes # (Auto) 1.49 K/uL (1.2-3.4) 01/21/22 Monocytes # (Auto) 0.43 K/uL (0.11-0.59) 01/21/22 Eosinophils # (Auto) 0.33 K/uL (0-0.5) 01/21/22 Basophils # (Auto) 0.01 K/uL (0-0.2) 01/21/22 Immature Granulocyte # (Auto) 0.01 K/uL (0.00-0.02) 01/21/22 Na 140 mmol/L (136-145) 01/21/22 K 3.5 mmol/L (3.5-5.1) 01/21/22 Cl 109 mmol/L (98-107) H 01/21/22 CO2 22 mmol/L (21-32) 01/21/22 Anion Gap 9 (3-11) 01/21/22 BUN 33 mg/dl (6-23) H 01/21/22 Creatinine 1.90 mg/dl (0.6-1.4) H 01/21/22 BUN/Creatinine Ratio 17.4 (10-20) 01/21/22 Glucose Level 144 mg/dl (70-99(Fasting)) H 01/21/22 Ca 9.4 mg/dl (8.5-10.1) 01/21/22 Total Bilirubin 0.5 mg/dl (0.2-1.0) 01/21/22 AST/SGOT 21 U/L (13-39) 01/21/22 ALT/SGPT 24 U/L (7-52) 01/21/22 Alkaline Phosphatase 51 U/L (34-104) 01/21/22 Total Protein 6.9 gm/dl (6.0-8.3) 01/21/22 Albumin 4.1 gm/dl (3.4-5.0) 01/21/22 Globulin 2.8 gm/dl (2.5-4.0) 01/21/22 Albumin/Globulin Ratio 1.5 (0.9-2) 01/21/22 PTT 24.3 Seconds (21.0-31.0) 01/21/22 INR 1.0 (0.9-1.1) 01/21/22 SARS-CoV-2, RNA, NAAT NEGATIVE (NEGATIVE) 01/21/22 Chest X-Ray 01/21/22 Code Status & VTE Plan Code Status FULL CODE VTE Prophylaxis Plan VTE Prophylaxis will be ordered: Yes Supervising Physician Co-Signing Physician Notes History of prescribed some performed by me as detailed by Belia Vitale PA-C. History notable for 81-year-old man with hypertension, diabetes mellitus, CKD who presented with left upper extremity weakness started on waking up this morning. Reported left upper extremity weakness on waking up, difficulty raising arm especially above shoulder level. Denied any numbness. Reports occasional intermittent numbness in the fingers which he related to cervical stenosis in the past that was managed with laminectomy many years ago. Also has chronic numbness in the anterior part of the plantar surface of both feet, radiculopathic symptoms managed by pain management with steroid injection (last injection was last month) Denied any facial numbness, dizziness, blurred vision, slurred speech Reports weakness is resolving On physical exam, General: Well nourished, well hydrated, +obese, no acute distress and not ill appearing Eyes: PERRL, conjunctivae normal, not pale, anicteric sclerae, EOM intact bilaterally ENMT: External ear and nose normal, oropharynx normal Neck: Normal visual inspection, no tracheal deviation, no swelling noted Respiratory: Normal respiratory effort, no respiratory distress, lungs clear to auscultation, no crackles and no wheezes Cardiovascular: Pulse is RRR. S1 S2 no pedal edema Gastrointestinal (Abdomen): Abdomen is not distended, soft, non-tender to palpation, no guarding, no palpable hepatosplenomegaly, normal bowel sounds Musculoskeletal: No cyanosis or clubbing, No pedal edema Skin: No rash noted on gross inspection, No ulcers noted Neurologic: Alert and oriented x 3, No dysdiadochokinesis, PERRL, EOMI, Accommodation normal, no facial deviation/slurred speech, Light touch intact. No sensory deficits noted. Power appear 5/5 in all extremities Psychiatric: Euthymic affect Lab work notable for hemoglobin of 11.9, creatinine of 1.9 [baseline of 2-2.1], troponin high-sensitivity 24 pg/mL Head CT did not show any acute abnormalities CT angio of the neck showed severe stenosis [80%] of the proximal right internal carotid artery, moderate plaque within the left carotid bifurcation without stenosis and suboptimal evaluation of the vertebral artery origins due to motion artifact. Left upper extremity weakness Possibilities include possible TIA Get MRI brain Will appreciate neuro evaluation Vasc consult Get TTE Trend trop. Tele monitor Agree with other plans as detailed by Belia Vitale
[2022-01-21] MEDS ORDERED: ASPIRIN 81 MG ECTAB PO STA (10:22)
[2022-01-21] MEDS ORDERED: ASPIRIN 325 MG ECTAB PO STA (10:41)
[2022-01-21] MEDS ORDERED: ASPIRIN CHEW 324 MG ONE (10:43)
[2022-01-21] MEDS ORDERED: LORazepam 2 MG/1 ML VIAL IV ONE (11:00)
--- NOTE | 2022-01-21 11:01 | Communication Note ---
Date of Service: January 21, 2022 History of prescribed some performed by me as detailed by Belia Vitale PA-C. History notable for 81-year-old man with hypertension, diabetes mellitus, CKD who presented with left upper extremity weakness started on waking up this morning. Reported left upper extremity weakness on waking up, difficulty raising arm especially above shoulder level. Denied any numbness. Reports occasional intermittent numbness in the fingers which he related to cervical stenosis in the past that was managed with laminectomy many years ago. Also has chronic numbness in the anterior part of the plantar surface of both feet, radiculopathic symptoms managed by pain management with steroid injection (last injection was last month) Denied any facial numbness, dizziness, blurred vision, slurred speech Reports weakness is resolving On physical exam, General: Well nourished, well hydrated, +obese, no acute distress and not ill appearing Eyes: PERRL, conjunctivae normal, not pale, anicteric sclerae, EOM intact bilaterally ENMT: External ear and nose normal, oropharynx normal Neck: Normal visual inspection, no tracheal deviation, no swelling noted Respiratory: Normal respiratory effort, no respiratory distress, lungs clear to auscultation, no crackles and no wheezes Cardiovascular: Pulse is RRR. S1 S2 no pedal edema Gastrointestinal (Abdomen): Abdomen is not distended, soft, non-tender to palpation, no guarding, no palpable hepatosplenomegaly, normal bowel sounds Musculoskeletal: No cyanosis or clubbing, No pedal edema Skin: No rash noted on gross inspection, No ulcers noted Neurologic: Alert and oriented x 3, No dysdiadochokinesis, PERRL, EOMI, Accommodation normal, no facial deviation/slurred speech, Light touch intact. No sensory deficits noted. Power appear 5/5 in all extremities Psychiatric: Euthymic affect Lab work notable for hemoglobin of 11.9, creatinine of 1.9 [baseline of 2-2.1], troponin high-sensitivity 24 pg/mL Head CT did not show any acute abnormalities CT angio of the neck showed severe stenosis [80%] of the proximal right internal carotid artery, moderate plaque within the left carotid bifurcation without stenosis and suboptimal evaluation of the vertebral artery origins due to motion artifact. Left upper extremity weakness Possibilities include possible TIA Get MRI brain Will appreciate neuro evaluation Vasc consult Get TTE Trend trop. Tele monitor Agree with other plans as detailed by Belia Vitale
[2022-01-21] MEDS ORDERED: GADOBUTROL 65ML VIAL IV ONE (12:24)
[2022-01-21] MEDS ORDERED: GLUCOSE 10 TABS/TUBE PO PRN (12:46)
[2022-01-21] MEDS ORDERED: ALUMINUM/MAGNESIUM SUSP 30 ML UDC PO PRN (12:46)
[2022-01-21] MEDS ORDERED: PHARMACY GLYCEMIC MGMT CONSULT PRN (12:46)
[2022-01-21] MEDS ORDERED: DEXTROSE 50% 50 ML SYRINGE IV PRN (12:46)
[2022-01-21] MEDS ORDERED: MAGNESIUM HYDROXIDE SUSP 30 ML UDC PO PRN (12:46)
[2022-01-21] MEDS ORDERED: ACETAMINOPHEN 325 MG TAB PO PRN (12:46)
[2022-01-21] MEDS ORDERED: GLUCAGON FOR INJ 1 MG VIAL SQ PRN (12:46)
[2022-01-21] MEDS ORDERED: CARBOHYDRATES FOR HYPOGLYCEMIA PO PRN (12:46)
[2022-01-21] MEDS ORDERED: POLYETHYLENE (MIRALAX) 17 GM PACK PO PRN (12:46)
[2022-01-21] MEDS ORDERED: GLUCOSE 40% GEL 15 GM TUBE PO PRN (12:46)
[2022-01-21] MEDS ORDERED: INSULIN GLARGINE SOLOSTAR 100 UNITS/ML 3 ML PEN SC SCH (12:46)
[2022-01-21] MEDS ORDERED: PHARMACIST DISCHARGE MED REC CONSULT PRN (12:46)
[2022-01-21] MEDS ORDERED: PROMETHAZINE HCL 6.25 MG in SODIUM CHLORIDE 0.9% 50 ML IV PRN (13:15)
--- NOTE | 2022-01-21 13:16 | Magnetic Resonance Report ---
MRI OF THE BRAIN WITHOUT AND WITH IV CONTRAST CLINICAL HISTORY: Stroke like symptoms. COMPARISON STUDY: Head CT and CTA of the head performed earlier today. TECHNIQUE: Utilizing a 1.5 Wanda magnet and dedicated coil, multiplanar, multiecho imaging of the br ain was performed pre and postcontrast administration. IV administration of 12.3 mL of Gadavist cont rast was uneventful. FINDINGS: There are 2 small foci of restricted diffusion within the posterior right frontal lobe. The se measure up to 7 mm. These reflect small acute infarcts. There is no mass effect. No acute hemorrha ge is present. Ventricular system is unremarkable. Basal cisterns are patent. No extra-axial collecti ons are present. Flow-voids for the major intracranial vessels are present. Mild atrophy is noted. Mi ld white matter T2 hyperintense foci suggest small vessel disease. There is an old lacunar infarct wi thin left cerebellar hemisphere. There is a small hypodense focus within the left cerebellar hemisphe re on the gradient echo sequence. This suggests trace blood products. Calvarial signal is within norm al limits. Polypoid mucosal thickening of the left sphenoid sinus is present. 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 No mass effect. No acute hemorrhage. ACT 112: Negative or not required by law. Electronically signed by: Zia Thomas M.D. 01/21/2022 1:15 PM
--- NOTE | 2022-01-21 13:41 | Neurology Consultation ---
Date of Consultation January 21, 2022 Assessment & Plan (1) CVA (cerebral vascular accident): 1. MRI brain - 2 small infarct right posterior frontal lobe 2. CTA-Severe (80%) stenosis of the proximal right internal carotid artery. 3. TTE if not already done 4. continue aspirin 81 mg and add plavix 75 mg daily 5. consult to vascular for plan 6. PT/OT speech for discharge needs 7. permissive blood pressure for 24-48 hours then optimize HTN HLD DM LDL <70 8. follow up with neurology in 4-6 weeks (2) HTN (hypertension): (3) Internal carotid artery stenosis: 1. vascular consult Supervising Physician Co-Signing Physician Notes Patient was seen and examined. He was admitted for transient left upper extremity weakness now resolved. No history of stroke. Non smoker. On ASA. Well controlled type II DM. MRI brain shows embolic appearing infarcts in the right MCA distribution with severe right carotid stenosis on CTA neck. Will add plavix and increase crestor to 40 mg daily. Recommend vascular surgery consult for symptomatic carotid stenosis. Recommend Neurology follow up in 8 weeks. History of Present Illness Reason for Consultation: Stroke like sx Requesting Physician: Rosa Townsend MD Attending Physician: Rosa Townsend MD History of Present Illness Rafy is a 81 year old male with PMH- insulin-dependent DM2, HTN, HLD, chronic HFpEF, mild aortic stenosis, known PFO, diabetic polyneuropathy, CKD stage IV, secondary hyperparathyroidism, anemia of renal disease and BPH who presented to [facility] 01/21/22 with left upper extremity weakness x1 day. He woke up this morning and felt his left arm was not useable. He could not go above 90 degrees. He even had a hard time getting out of bed. He know has improved ROM to L arm. He describes his arm as feeling, "strange." He has never had this happen before. When he would try to put arm up it just, "flopped back down." He feels like he was lying on his left side. He does feel he has some weakness still to L arm but feel its 70% improved. He has neuropathy and does have numbness to legs. The ball of his foot forward is numbness/lack of sensation. He thinks his arm is back to baseline. he had no slurred speech facial droop. denies CP, SOB, abdominal pain, N, V, vision changes. Allergies Allergy/AdvReac Type Severity Reaction Status Date / Time Penicillins Allergy Unknown HIVES Verified 01/21/22 09:55 SULFA DRUGS Allergy Unknown GI issues Uncoded 01/21/22 09:55 Home Medications Medication Instructions Recorded Confirmed Type amlodipine 5 mg tablet 5 mg PO QAM 01/02/19 01/21/22 History cholecalciferol (vitamin D3) 50 2,000 unit PO QAM 01/02/19 01/21/22 History mcg (2,000 unit) capsule furosemide 20 mg tablet 40 mg PO DAILY 01/02/19 01/21/22 History insulin glargine U-300 conc 300 50 unit SUBCUT BID 01/02/19 01/21/22 History unit/mL (1.5 mL) subcutaneous pen (Toujeo SoloStar U-300 Insulin) insulin lispro 100 unit/mL 40 unit SUBCUT AC 01/02/19 01/21/22 History subcutaneous pen (Humalog KwikPen (U-100) Insulin) omeprazole 20 mg capsule,delayed 20 mg PO QAM 01/02/19 01/21/22 History release pramlintide 2,700 mcg/2.7 mL 120 mcg SUBCUT BID 01/02/19 01/21/22 History subcutaneous pen injector (SymlinPen 120) alfuzosin 10 mg tablet,extended 10 mg PO DAILY 01/21/22 01/21/22 History release 24 hr allopurinol 100 mg tablet 100 mg PO BID 01/21/22 01/21/22 History aspirin 81 mg chewable tablet 81 mg PO DAILY 01/21/22 01/21/22 History coenzyme Q10 100 mg capsule 100 mg PO DAILY 01/21/22 01/21/22 History finasteride 5 mg tablet 5 mg PO DAILY 01/21/22 01/21/22 History levothyroxine 137 mcg tablet 137 mcg PO DAILY 01/21/22 01/21/22 History losartan 50 mg tablet 50 mg PO DAILY 01/21/22 01/21/22 History omega-3 fatty acids 1,000 mg PO BID 01/21/22 01/21/22 History rosuvastatin 20 mg tablet 20 mg PO DAILY 01/21/22 01/21/22 History sildenafil 50 mg tablet 50 mg PO USEASDIRECTD 01/21/22 01/21/22 History Patient History Medical History (Updated 01/21/22 @ 13:34 by Adriana Zhong PA-C) Cardiac murmur HX OF PREVIOUSLY AUSCULTATED MURMUR. PT HAD ECHO AND CARDIAC WORKUP. FOLLOWS WITH DR. VINES CKD (chronic kidney disease) stage 4, GFR 15-29 ml/min Diabetes mellitus, type 2 Diverticular disease Fatty liver GERD (gastroesophageal reflux disease) History of skin cancer EXCISION FROM THIGH Hyperlipidemia Hypertension Hypothyroidism Secondary hyperparathyroidism Surgical History History of arthroscopy B/L SHOULDER REPAIRS History of cataract extraction with lens replacement History of cholecystectomy History of colonoscopy History of laminectomy CERVIAL LAMI S/T SPINAL STENOSIS. History of prostate surgery HX OF GREENLIGHT TURP 10+ YEARS AGO History of surgery on arm LIGAMENT History of tonsillectomy Family History (Updated 01/21/22 @ 10:02 by Belia Vitale PA-C) Father Colorectal cancer Mother No problems noted. Denies family history of Stroke Social History Smoking Status: Never smoker Cigarettes Per Day: 0; Second Hand Exposure: No; Hx Alcohol Use: Yes Alcohol type: other Hx Substance Use: No Preferred Language: Georgian Communication Ability: Effective Space Control Supervisor Required: No Beliefs That Will Affect Care: None Current Living Situation: Spouse Current Living Situation Comment: Other Information That Helps Us Care for You: No Feels Safe at Home: Yes Safety Concerns: Feels Safe At This Time Assistive Devices: None Review of Systems Review of Systems: All systems reviewed & are unremarkable except as noted in HPI & below Physical Exam Physical Exam: Physical Exam: Constitutional: appearance over nourished Ears, Nose, Mouth and Throat: mucous membranes moist, no injection and skin normal, eyes normal Cardiovascular: normal S-1 and S-2 and regular rate and rhythm Respiratory: course breath sounds Musculoskeletal: non pitting peripheral edema and weak distal pulses Skin: no stigmata of neurocutaneous disease noted and normal and intact Eyes: extraocular muscles intact (EOMI) and pupils equal, round and reactive to light (PERRL) NEUROLOGIC EXAMINATION: Mental status: Alert and interactive Oriented to full date and location Oriented to person Speech fluent with no evidence of aphasia Cranial Nerves smile eye brow raise symmetric Reflexes: Deep tendon reflexes were decreased throughout Sensory: decreased sensation to vibration to knees bilaterally light touch intact Coordination: finger to nose Gait/Stance: Posture sitting bedside Motor: Negative for pronator drift of out stretched arms with eyes closed. Strength: hand acute care nurse practitioner biceps triceps hip flex bilateral 5/5 Results & Data ([facility]) Vital Signs (Past 12 Hours) Vital Signs Temp Pulse Pulse Resp BP BP Pulse Ox 01/21/22 12:34 36.5 C 75 20 172/85 H 99 01/21/22 11:15 61 22 161/79 H 96 01/21/22 11:00 66 26 H 157/87 H 98 01/21/22 10:45 65 23 154/83 H 96 01/21/22 10:30 67 21 158/94 H 97 01/21/22 10:15 67 20 182/89 H 01/21/22 10:00 65 25 H 153/82 H 96 01/21/22 09:45 63 20 157/85 H 96 01/21/22 09:30 66 21 163/89 H 95 01/21/22 09:15 63 15 158/89 H 96 01/21/22 09:00 66 154/77 H 98 01/21/22 08:45 73 19 155/78 H 96 01/21/22 08:38 66 25 H 145/81 H 97 01/21/22 07:55 36.6 C 74 16 171/84 H 95 Laboratory Results Abnormal lab results 01/21/22 01/21/22 01/21/22 Range/Units 08:08 08:08 12:48 RBC 3.90 L (4.7-6.1) M/uL Hgb 11.9 L (14.0-18.0) g/dL Hct 34.2 L (42-52) % Chloride 109 H (98-107) mmol/L BUN 33 H (6-23) mg/dl Creatinine 1.90 H (0.6-1.4) mg/dl Glucose 144 H (70-99(Fasting)) mg/dl POC Glucose 166 H (70-99) mg/dl Troponin I High Sens 24.0 H (0-20) pg/ml Diagnostic Findings CXR- No acute cardiopulmonary findings. CT head-No acute intracranial hemorrhage, midline shift or mass effect is present. White matter hypodensities favor small vessel disease. The ventricular system is unremarkable. The basal cisterns are patent. No extra-axial collections are present. There are no findings to suggest acute dural sinus thrombosis or acute territorial infarct. No significant calvarial abnormalities are present. There is mild sinus mucosal thickening. Unremarkable CTA of the head. CTA neck-Severe (80%) stenosis of the proximal right internal carotid artery. Moderate plaque within the left carotid bifurcation without stenosis. Suboptimal evaluation of the vertebral artery origins due to motion artifact. MRI brain-Two small acute infarcts measuring up to 7 mm within the posterior right frontal lobe which would account for the patient's left arm weakness. No mass effect. No acute hemorrhage. (1) HTN (hypertension) Hypertension type: unspecified Qualified Code(s): I10 - Essential (primary) hypertension
--- NOTE | 2022-01-21 13:58 | Pharmacy Report ---
Pharmacy Glycemic Short Note 2 - Date of Service January 21, 2022 - Glycemic Short BSG Results (Last 24 hours): 01/21/22 01/21/22 08:08 12:48 Glucose 144 H POC Glucose 166 H OUTPATIENT ANTIDIABETIC REGIMEN: * Toujeo 50 units SQ BID * Lispro 40 units SQ with meals * Pramlintide SQ BID * A1c = 6.5% (11/17/21) - may be unreliable in setting of CKD, chronic anemia ASSESSMENT: * 81 yo T2DM admitted with upper extremity weakness * PMH significant for HTN, HLD, chronic HFpEF, mild aortic stenosis, known PFO, diabetic polyneuropathy, CKD stage IV, secondary hyperparathyroidism, anemia of renal disease and BPH * Patient is well controlled on home insulin regimen. * Will start a similar regimen while admitted with slight reduction to avoid hypoglycemia. Titrate as needed. PLAN FOR INPATIENT GLYCEMIC CONTROL: * Basal insulin * Lantus 40 units SQ x 1 then per scale BID: * 35 units for BSG < 140 * 50 units for BSG 140 or more * Bolus insulin * NovoLog per scale ACHS or Q6hrs while NPO * Goal Range: Low 120 mg/dL - High 150 mg/dL * Correction Factor: 10 mg/dL/unit * Nutritional / Prandial insulin per carb ratio of 1 unit per 3 grams CHO consumed
[2022-01-21] MEDS ORDERED: INSULIN GLARGINE SOLOSTAR 100 UNITS/ML 3 ML PEN SC ONE (14:00)
[2022-01-21] MEDS: INSULIN ASPART PER UNIT SC SCH ×3 (14:12→21:11)
--- NOTE | 2022-01-21 14:54 | Electrocardiogram Report ---
Test Reason : Blood Pressure : / mmHG Vent. Rate : 068 BPM Atrial Rate : 068 BPM P-R Int : 208 ms QRS Dur : 098 ms QT Int : 458 ms P-R-T Axes : 012 009 059 degrees QTc Int : 487 ms Normal sinus rhythm with sinus arrhythmia Prolonged QT Abnormal ECG When compared with ECG of 09-DEC-2011 10:25, No significant change was found Confirmed by Zeyad Mendoza ([id number]) on 01/21/2022 2:54:24 PM Referred By: Confirmed By:Saurabh Mendoza
[2022-01-21] MEDS: CLOPIDOGREL BISULFATE 75 MG TAB PO SCH (18:17)
--- NOTE | 2022-01-21 18:45 | Ultrasound Report ---
ULTRASOUND OF THE CAROTID ARTERIES CLINICAL HISTORY: Right internal carotid artery stenosis. COMPARISON STUDY: CT angiogram of the neck dated 01/21/2022. TECHNIQUE: Real-time, grayscale, and color Doppler sonography of the carotid arteries is performed. I mages are reviewed in the transverse and longitudinal planes. FINDINGS: The carotid arteries are patent bilaterally and demonstrate antegrade flow. Atherosclerotic plaque is seen within the carotid systems bilaterally, right greater than left. Normal doppler arterial wavefo stefani are seen throughout. Velocity measurements are listed below. Common carotid peak systolic velocity (cm/sec): RIGHT: 41 LEFT: 65 ICA proximal peak systolic velocity (cm/sec): RIGHT: 191 LEFT: 66 ICA mid peak systolic velocity (cm/sec): RIGHT: 156 LEFT: 57 ICA distal peak systolic velocity (cm/sec): RIGHT: 102 LEFT: 63 ICA/CC peak systolic ratio: RIGHT: 4.6 LEFT: 1.0 Antegrade flow was shown in the vertebral arteries. The external carotid arteries are patent. IMPRESSION: 1. Atherosclerotic plaque with evidence of 50-69% stenosis of the proximal right internal carotid art andreas by velocity criteria. Note that this was better assessed on today's CT angiogram of the neck. 2. There is no sonographic evidence of hemodynamically significant stenosis within the left carotid a rterial system. 3. Antegrade flow is shown in the vertebral arteries. ACT 112: Negative or not required by law. Electronically signed by: Demarcus De Anda M.D. 01/21/2022 6:43 PM
--- NOTE | 2022-01-21 20:00 | Communication Note ---
Date of Service: January 21, 2022 MRI brain showed 2 small acute infarcts in posterior right frontal lobe This will accounts for patient's left sided symptoms Patient has CVA Neurology recommendations noted
[2022-01-21] MEDS: allopurinoL 100 MG TAB PO SCH (20:07)
[2022-01-21] MEDS: OMEGA-3 (PURIFIED FISH OIL) 1 GM CAP PO SCH (20:07)
[2022-01-21] MEDS: INSULIN GLARGINE SOLOSTAR 100 UNITS/ML 3 ML PEN SC SCH (21:00)
[2022-01-22] MEDS ORDERED: INSULIN ASPART PER UNIT SC SCH
[2022-01-22 07:00] LABS: Basophils # (auto) 0.01 K/uL (0-0.2); Basophils % (auto) 0.2 %; Eosinophils # (auto) 0.36 K/uL (0-0.5); Eosinophils % (auto) 5.8 %; Hematocrit (blood only) 34.5 % (42-52); Hemoglobin 11.9 g/dL (14.0-18.0); Immature Granulocytes # (auto) 0.01 K/uL (0.00-0.02); Immature Granulocytes % (auto) 0.2 %; Lymphocytes # (auto) 1.55 K/uL (1.2-3.4); Lymphocytes % (auto) 25.1 %; Mean Corpuscular Hemoglobin 29.9 pg (25-34); Mean Corpuscular Hgb Conc 34.5 g/dL (32-36); Mean Corpuscular Volume 86.7 fL (80-100); Mean Platelet Volume 9.4 fL (7.4-10.4); Monocytes # (auto) 0.46 K/uL (0.11-0.59); Monocytes % (auto) 7.4 %; Neutrophils # (auto) 3.79 K/uL (1.4-6.5); Neutrophils % (auto) 61.3 %; Platelet Count 189 K/uL (130-400); Red Blood Count 3.98 M/uL (4.7-6.1); White Blood Count 6.18 K/uL (4.8-10.8)
[2022-01-22 07:25] LABS: BUN Creatinine Ratio 15.2 (10-20); Calcium 9.2 mg/dl (8.5-10.1); Chol HDL Ratio 3.8 (0-5); Est GFR (African American) 42.6 ml/min; Est GFR (Non-African American) 36.7 ml/min; Potassium 3.6 mmol/L (3.5-5.1)
[2022-01-22] MEDS: allopurinoL 100 MG TAB PO SCH (07:45)
[2022-01-22] MEDS: CLOPIDOGREL BISULFATE 75 MG TAB PO SCH (07:46)
[2022-01-22] MEDS: OMEGA-3 (PURIFIED FISH OIL) 1 GM CAP PO SCH (07:46)
[2022-01-22] MEDS: INSULIN ASPART PER UNIT SC SCH ×2 (07:52→12:44)
[2022-01-22] MEDS: INSULIN GLARGINE SOLOSTAR 100 UNITS/ML 3 ML PEN SC SCH (07:54)
[2022-01-22 08:00] LABS: Estimated Average Glucose 134 mg/dl; Hemoglobin A1C 6.3 % (4.5-5.6)
[2022-01-22] MEDS ORDERED: LEVOTHYROXINE SODIUM 137 MCG TABLET PO SCH (09:00)
[2022-01-22] MEDS ORDERED: ALFUZOSIN HCL 10 MG TAB PO SCH (09:00)
[2022-01-22] MEDS ORDERED: NON-FORMULARY MEDICATION (Coenzyme Q10 100 mg Capsule) PO SCH (09:00)
[2022-01-22] MEDS ORDERED: ASPIRIN 81 MG ECTAB PO SCH (09:00)
[2022-01-22] MEDS ORDERED: PANTOprazole 40 MG TAB PO SCH (09:00)
[2022-01-22] MEDS ORDERED: LOSARTAN POTASSIUM 50 MG TAB PO SCH (09:00)
[2022-01-22] MEDS ORDERED: FUROSEMIDE 40 MG TAB PO SCH (09:00)
[2022-01-22] MEDS ORDERED: ASPIRIN 81 MG CHEW PO SCH (09:00)
[2022-01-22] MEDS ORDERED: FINASTERIDE 5 MG TAB PO SCH (09:00)
[2022-01-22] MEDS ORDERED: ROSUVASTATIN CALCIUM 20 MG TAB PO SCH (09:00)
[2022-01-22] MEDS ORDERED: CHOLECALCIFEROL 1,000 UNITS 25 MCG TAB PO SCH (09:00)
[2022-01-22] MEDS ORDERED: amLODIPine BESYLATE 5 MG TAB PO SCH (09:00)
--- NOTE | 2022-01-22 13:08 | Communication Note ---
Date of Service: January 22, 2022 Patient scheduled for RCEA on wednesday in am. Can d/c till then on ASA and plavix.
--- NOTE | 2022-01-22 13:24 | Pharmacy Report ---
Pharmacy Glycemic Short Note 2 - Date of Service January 22, 2022 - Glycemic Short BSG Results (Last 24 hours): 01/21/22 01/21/22 01/22/22 16:27 20:34 06:25 Glucose 73 POC Glucose 174 H 92 01/22/22 01/22/22 07:00 11:12 Glucose POC Glucose 83 117 H OUTPATIENT ANTIDIABETIC REGIMEN: * Toujeo 50 units SQ BID * Lispro 40 units SQ with meals * Pramlintide SQ BID * A1c = 6.5% (11/17/21) - may be unreliable in setting of CKD, chronic anemia ASSESSMENT: 01/22/22 * Patient received 40 units basal yesterday, 27 units bolus insulin, Fasting BSG 73mg/dl * Decrease basal insulin today to prevent hypoglycemia. * No further changes at this time. 01/21/22 * 81 yo T2DM admitted with upper extremity weakness * PMH significant for HTN, HLD, chronic HFpEF, mild aortic stenosis, known PFO, diabetic polyneuropathy, CKD stage IV, secondary hyperparathyroidism, anemia of renal disease and BPH * Patient is well controlled on home insulin regimen. * Will start a similar regimen while admitted with slight reduction to avoid hypoglycemia. Titrate as needed. PLAN FOR INPATIENT GLYCEMIC CONTROL: * Basal insulin -decrease * Lantus SQ BID per scale: * 10 units for BSG < 140 * 20 units for BSG 140 or more * Bolus insulin * NovoLog per scale ACHS or Q6hrs while NPO * Goal Range: Low 120 mg/dL - High 150 mg/dL * Correction Factor: 10 mg/dL/unit * Nutritional / Prandial insulin per carb ratio of 1 unit per 3 grams CHO consumed
--- NOTE | 2022-01-22 14:52 | Consultation ---
Date of Consultation January 22, 2022 Assessment & Plan (1) Stenosis of right internal carotid artery with cerebral infarction: This patient was found to have a severe 80% stenosis of his right internal carotid artery at the origin. This indeed correlates with the MRI finding of 2 small infarcts in the posterior right frontal lobe. At this point recommend carotid endarterectomy. This will be scheduled this coming week. I have discussed the risks options and benefits of the procedure with the patient. The patient understands the risks options and benefits and agrees to the procedure. He can be discharged meantime on Plavix and aspirin. If he develops more symptoms then he will need to come back to emergency room for urgent carotid endarterectomy. As of now he scheduled for Wednesday morning for his right carotid endarterectomy procedure. Thank you very much for letting us participate in the care of this patient. History of Present Illness Reason for Consultation: Severe right carotid artery stenosis Attending Physician: Abraham Corado MD History of Present Illness This patient is 81-year-old male who has a history of diabetes mellitus type 2, hypertension, hyperlipidemia, mild aortic stenosis, stage IV chronic kidney disease, hyperparathyroidism, benign prostatic hypertrophy, diabetic polyneuro selina, and anemia due to his chronic renal disease. He also has a known history of PFO. He presented to [facility] on 518 with left upper extremity weakness x1 day. He felt like his left arm was not usable. This was the primary event. He had never had this feeling prior to this. At this point he thinks his arm is markedly improved and is back to baseline. He does have numbness in both feet due to his polyneuropathy. This has not changed. He had no other neurological complaints at the time of admission. He denied any shortness of breath, abdominal pain, or chest pain at the time of admission. Allergies Allergy/AdvReac Type Severity Reaction Status Date / Time Penicillins Allergy Unknown HIVES Verified 01/21/22 09:55 SULFA DRUGS Allergy Unknown GI issues Uncoded 01/21/22 09:55 Home Medications Medication Instructions Recorded Confirmed Type amlodipine 5 mg tablet 5 mg PO QAM 01/02/19 01/21/22 History cholecalciferol (vitamin D3) 50 2,000 unit PO QAM 01/02/19 01/21/22 History mcg (2,000 unit) capsule furosemide 20 mg tablet 40 mg PO DAILY 01/02/19 01/21/22 History insulin glargine U-300 conc 300 50 unit SUBCUT BID 01/02/19 01/21/22 History unit/mL (1.5 mL) subcutaneous pen (Toujeo SoloStar U-300 Insulin) insulin lispro 100 unit/mL 40 unit SUBCUT AC 01/02/19 01/21/22 History subcutaneous pen (Humalog KwikPen (U-100) Insulin) omeprazole 20 mg capsule,delayed 20 mg PO QAM 01/02/19 01/21/22 History release pramlintide 2,700 mcg/2.7 mL 120 mcg SUBCUT BID 01/02/19 01/21/22 History subcutaneous pen injector (SymlinPen 120) alfuzosin 10 mg tablet,extended 10 mg PO DAILY 01/21/22 01/21/22 History release 24 hr allopurinol 100 mg tablet 100 mg PO BID 01/21/22 01/21/22 History aspirin 81 mg chewable tablet 81 mg PO DAILY 01/21/22 01/21/22 History coenzyme Q10 100 mg capsule 100 mg PO DAILY 01/21/22 01/21/22 History finasteride 5 mg tablet 5 mg PO DAILY 01/21/22 01/21/22 History levothyroxine 137 mcg tablet 137 mcg PO DAILY 01/21/22 01/21/22 History losartan 50 mg tablet 50 mg PO DAILY 01/21/22 01/21/22 History omega-3 fatty acids 1,000 mg PO BID 01/21/22 01/21/22 History rosuvastatin 20 mg tablet 20 mg PO DAILY 01/21/22 01/21/22 History sildenafil 50 mg tablet 50 mg PO USEASDIRECTD 01/21/22 01/21/22 History Patient History Medical History Cardiac murmur HX OF PREVIOUSLY AUSCULTATED MURMUR. PT HAD ECHO AND CARDIAC WORKUP. FOLLOWS WITH DR. VINES CKD (chronic kidney disease) stage 4, GFR 15-29 ml/min Diabetes mellitus, type 2 Diverticular disease Fatty liver GERD (gastroesophageal reflux disease) History of skin cancer EXCISION FROM THIGH Hyperlipidemia Hypertension Hypothyroidism Secondary hyperparathyroidism Surgical History History of arthroscopy B/L SHOULDER REPAIRS History of cataract extraction with lens replacement History of cholecystectomy History of colonoscopy History of laminectomy CERVIAL LAMI S/T SPINAL STENOSIS. History of prostate surgery HX OF GREENLIGHT TURP 10+ YEARS AGO History of surgery on arm LIGAMENT History of tonsillectomy Family History Father Colorectal cancer Mother No problems noted. Denies family history of Stroke Social History Smoking Status: Never smoker Cigarettes Per Day: 0; Second Hand Exposure: No; Hx Alcohol Use: Yes Alcohol type: other Hx Substance Use: No Preferred Language: Vincentian Communication Ability: Effective General Counselor Required: No Beliefs That Will Affect Care: None marital status: Current Living Situation: Spouse Current Living Situation Comment: How many Children do You have: 7 Other Information That Helps Us Care for You: No Feels Safe at Home: Yes Safety Concerns: Feels Safe At This Time Assistive Devices: None Review of Systems Review of Systems: All systems reviewed & are unremarkable except as noted in HPI & below Physical Exam Constitutional: WD/WN, vitals as above Eyes: reactive pupils; no eyelid abnormality ENMT: Mouth: no tongue abnormality Neck: trachea midline Respiratory: normal respiratory effort; no respiratory distress Auscultation: lungs clear to auscultation bilaterally Cardiovascular: Rate/Rhythm: regular rate and regular rhythm Heart Sounds: normal S1 and normal S2 Vessels: posterior tibial pulses present, dorsalis pedis pulses present and radial pulses present Gastrointestinal (Abdomen): normal bowel sounds, soft, nontender, no hepatosplenomegaly Musculoskeletal: no cyanosis or clubbing, extremities motor strength 5/5 Neurologic: CN's II-XI intact bilaterally and moves all extremities Speech / Cognition: normal speech Motor/Sensory: + sensory deficit (decreased sensation of feet); normal movement Cranial Nerves: PERRL, normal facial strength, tongue midline and able to rotate head bilaterally Psychiatric: Orientation: alert and oriented x 3 Results & Data ([facility]) Vital Signs (Past 12 Hours) Vital Signs Temp Pulse Resp BP Pulse Ox 01/22/22 11:14 36.7 C 66 18 174/85 H 94 01/22/22 07:01 36.7 C 65 18 167/87 H 96 01/22/22 03:51 36.6 C 60 18 154/77 H 98 Diagnostic Findings CTA neck-Severe (80%) stenosis of the proximal right internal carotid artery. Moderate plaque within the left carotid bifurcation without stenosis. Suboptimal evaluation of the vertebral artery origins due to motion artifact. MRI brain-Two small acute infarcts measuring up to 7 mm within the posterior right frontal lobe which would account for the patient's left arm weakness. No mass effect. No acute hemorrhage.
[2022-01-22] MEDS ORDERED: STROKE PATIENT DISCHARGE STA (16:18)
--- NOTE | 2022-01-22 16:41 | Discharge Summary ---
Date of Service January 22, 2022 Admission HPI Per Admitting Provider This is an 81-year-old male who has a significant past medical history of insulin-dependent T2DM, HTN, HLD, chronic HFpEF, mild aortic stenosis, known PFO, diabetic polyneuropathy, CKD stage IV, secondary hyperparathyroidism, anemia of renal disease and BPH who presents to ED secondary to left upper extremity weakness x1 day. He woke up this morning and felt his left arm was not useable. He could not go above 90 degrees. He even had a hard time getting out of bed. He know has improved ROM to L arm. He denies any injury or sleeping wrong. He denies numbness/tingling. He describes his arm as feeling, "strange." He has never had this happen before. When he would try to put arm up it just, "flopped back down." He awoke this a.m. at 6am. He feels like he was lying on his left side. He does feel he has some weakness still to L arm but feel its 70% improved. He denies REYNOSO, dizziness, blurred vision, trouble swallowing or speaking, new numbness, f/c/s, chest pain, sob, cough, n/v/d, abd pain, constipation, dysuria, increased urg/freq with urination, hematuria, melena, hematochezia. He has neuropathy and does have numbness to legs. The ball of his foot forward is numbness/lack of sensation. He denies current pain radiating down legs. He does get injection to back, L3-L5 epidural steroid inj 1 month ago. He denies tobacco use, recreational drugs. He does drink alcohol occasionally, beer. In ED patient remained hemodynamically stable. Initial CT head was negative for acute abnormality. Head CTA was unremarkable. Neck CTA revealed 80% severe right internal carotid artery stenosis. Lab work revealed a stable creatinine at 1.9, mildly elevated troponin at 24 and stable H&H 11.9 and 34.2. Admission Exam Per Admitting Provider General: Well nourished, well hydrated, +obese, no acute distress and not ill appearing Eyes: PERRL, conjunctivae normal, not pale, anicteric sclerae, EOM intact bilaterally ENMT: External ear and nose normal, oropharynx normal Neck: Normal visual inspection, no tracheal deviation, no swelling noted Respiratory: Normal respiratory effort, no respiratory distress, lungs clear to auscultation, no crackles and no wheezes Cardiovascular: Pulse is RRR. S1 S2 no pedal edema Gastrointestinal (Abdomen): Abdomen is not distended, soft, non-tender to palpation, no guarding, no palpable hepatosplenomegaly, normal bowel sounds Musculoskeletal: No cyanosis or clubbing, No pedal edema Skin: No rash noted on gross inspection, No ulcers noted Neurologic: Alert and oriented x 3, No dysdiadochokinesis, PERRL, EOMI, Accommodation normal, no facial deviation/slurred speech, Light touch intact. No sensory deficits noted. 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 Left Upper extremity weakness: Right Internal carotid artery stenosis: Diabetes mellitus, type 2: Elevated troponin: Hypertension: CKD (chronic kidney disease) stage 4 Discharge Exam General- No acute distress Head- atraumatic Eyes- PERRL, EOMI, ENT- oropharynx clear Neck- supple, no JVD Lungs- clear to auscultation Heart- regular rhythm; no murmur Abdomen- normal bowel sounds, soft, nontender Extremities- no calf tenderness Neuro- alert, oriented x 3; PERRL, EOMI; no facial palsy; no dysarthria Skin- warm & dry Discharge Data Allergies Allergy/AdvReac Type Severity Reaction Status Date / Time Penicillins Allergy Unknown HIVES Verified 01/21/22 09:55 SULFA DRUGS Allergy Unknown GI issues Uncoded 01/21/22 09:55 Consultations 01/21/22 09:34 ED Decision to Admit Stat 01/21/22 09:44 Consult Neurology Routine Consult Vascular Surgery Routine Procedures Performed Operation Date: 01/26/22 09:50 <No data on this case meets the specified criteria> Ordered Studies 01/21/22 08:06 CT angio head w con Stat CT angio neck with con Stat CT head/brain wo con Stat 01/21/22 10:13 MR brain wo/w con Routine US carotid doppler BI Routine XR chest 1V portable CLINICAL HISTORY: Stroke Like Symptoms COMPARISON STUDY: Chest radiograph December 09, 2011. FINDINGS: Lung volumes are normal. Lungs are clear. There is no pneumothorax or pleural effusion. Borderline cardiomegaly. Mediastinal contours are normal. There is no evidence for pulmonary edema. IMPRESSION: No acute cardiopulmonary findings. ACT 112: Negative or not required by law. Electronically signed by: Zia Thomas M.D. 01/21/2022 8:50 AM Dictated:01/21/2250 Transcribed: 01/21/22849 CT OF THE HEAD WITHOUT CONTRAST CLINICAL HISTORY: Stroke Like Symptoms. Left arm weakness. COMPARISON STUDY: No previous studies for comparison. TECHNIQUE: Helical axial images of the head were obtained without IV contrast. Automated exposure control was utilized for the study. A dose lowering techn ique was utilized adhering to the principles of ALARA. FINDINGS: No acute intracranial hemorrhage, midline shift or mass effect is present. White matter hypodensities favor small vessel disease. The ventricular system is unremarkable. The basal cisterns are patent. No extra-axial collections are present. There are no findings to suggest acute dural sinus thrombosis or acute territorial infarct. No significant calvarial abnormalities are present. There is mild sinus mucosal thickening. IMPRESSION: No acute intracranial findings. ACT 112: Negative or not required by law. Electronically signed by: Zia Thomas M.D. 01/21/2022 8:43 AM Dictated:01/21/22838 Transcribed: 01/21/22838 CT angio head w con CLINICAL HISTORY: 81 years-old Male with Stroke Like Symptoms. Acute strokelike symptoms COMPARISON STUDY: CT head and CTA head and neck studies of same day TECHNIQUE: Following the IV administration of 120 mL cc of Optiray, CT angiogram of the brain was performed from the skull base to the vertex. Images are reviewed in the axial, sagittal, and coronal planes. 3-D MIPS images are created and assessed. IV contrast was administered without complication. All measurements were obtained according to NASCET criteria. A dose lowering technique was utilized adhering to the principles of ALARA. CT DOSE: 1236.28 mGy.cm FINDINGS: CT ANGIOGRAM OF THE BRAIN: Streak artifact from dental amalgam hardware limits the study. Atherosclerosis of the cavernous, clinoid and supraclinoid segments without high-grade stenosis. There is approximately 50% stenosis of the right supraclinoid segment, image 104. The imaged bilateral internal carotid arteries are patent. The bilateral anterior and middle cerebral arteries are also patent. Atherosclerosis of the V4 segments of the vertebral arteries without high-grade stenosis. The vertebrobasilar system and posterior cerebral arteries are widely patent. There is no aneurysm, high-grade stenosis, or proximal branch occlusion identified. Dural sinuses appear patent. Mild mucosal thickening of the maxillary sinuses. IMPRESSION: Unremarkable CTA of the head. ACT 112: Negative or not required by law. The above report was generated using voice recognition software. It may contain grammatical, syntax or spelling errors. Electronically signed by: Juanpablo Sandhu M.D. 01/21/2022 8:55 AM Dictated:01/21/2250 Transcribed: 01/21/22849 CT ANGIOGRAPHY OF THE NECK WITH CONTRAST CLINICAL HISTORY: Stroke Like Symptoms COMPARISON STUDY: No previous studies for comparison. Technique: CT angiography of the carotid and vertebral arteries was obtained using Optiray and 3D reconstruction on an independent workstation. NASCET criteria was utilized. Automated exposure control was utilized for the study. A dose lowering technique was utilized adhering to the principles of ALARA. Findings: Visualized portions of the lung apices are unremarkable. There is no cervical lymphadenopathy. Postoperative findings within the cervical spine are noted. There is no acute cervical spine fracture. There is moderate plaque within the left carotid bifurcation without stenosis. Origins of the bilateral vertebral arteries are suboptimally assessed on this exam given motion artifact. There is no dissection within the neck. No aneurysm within the neck. Note is made of extensive calcified and noncalcified plaque within the right carotid bifurcation. This results in 80% stenosis of the proximal right internal carotid artery. Stenosis extends for 3 mm. The caliber of the vessel at site of stenosis is 1.3 mm. The caliber of the vessel distally is 5 mm. IMPRESSION: 1. 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 2. Moderate plaque within the left carotid bifurcation without stenosis. 3. Suboptimal evaluation of the vertebral artery origins due to motion artifact. ACT 112: Negative or not required by law. Electronically signed by: Zia Thomas M.D. 01/21/2022 8:50 AM Dictated:01/21/2243 Transcribed: 01/21/22842 MRI OF THE BRAIN WITHOUT AND WITH IV CONTRAST CLINICAL HISTORY: Stroke like symptoms. COMPARISON STUDY: Head CT and CTA of the head performed earlier today. TECHNIQUE: Utilizing a 1.5 Wanda magnet and dedicated coil, multiplanar, multiecho imaging of the brain was performed pre and postcontrast administration. IV administration of 12.3 mL of Gadavist contrast was uneventful. FINDINGS: There are 2 small foci of restricted diffusion within the posterior right frontal lobe. These measure up to 7 mm. These reflect small acute infarcts. There is no mass effect. No acute hemorrhage is present. Ventricular system is unremarkable. Basal cisterns are patent. No extra-axial collections are present. Flow-voids for the major intracranial vessels are present. Mild atrophy is noted. Mild white matter T2 hyperintense foci suggest small vessel disease. There is an old lacunar infarct within left cerebellar hemisphere. There is a small hypodense focus within the left cerebellar hemisphere on the gradient echo sequence. This suggests trace blood products. Calvarial signal is within normal limits. Polypoid mucosal thickening of the left sphenoid sinus is present. 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 No mass effect. No acute hemorrhage. ACT 112: Negative or not required by law. Electronically signed by: Zia Thomas M.D. 01/21/2022 1:15 PM Dictated:01/21/22 1309 Transcribed: 01/21/22 1309 ULTRASOUND OF THE CAROTID ARTERIES CLINICAL HISTORY: Right internal carotid artery stenosis. COMPARISON STUDY: CT angiogram of the neck dated 01/21/2022. TECHNIQUE: Real-time, grayscale, and color Doppler sonography of the carotid arteries is performed. Images are reviewed in the transverse and longitudinal planes. FINDINGS: The carotid arteries are patent bilaterally and demonstrate antegrade flow. Atherosclerotic plaque is seen within the carotid systems bilaterally, right greater than left. Normal doppler arterial waveforms are seen throughout. Velocity measurements are listed below. Common carotid peak systolic velocity (cm/sec): RIGHT: 41 LEFT: 65 ICA proximal peak systolic velocity (cm/sec): RIGHT: 191 LEFT: 66 ICA mid peak systolic velocity (cm/sec): RIGHT: 156 LEFT: 57 ICA distal peak systolic velocity (cm/sec): RIGHT: 102 LEFT: 63 ICA/CC peak systolic ratio: RIGHT: 4.6 LEFT: 1.0 Antegrade flow was shown in the vertebral arteries. The external carotid arteries are patent. IMPRESSION: 1. Atherosclerotic plaque with evidence of 50-69% stenosis of the proximal right internal carotid artery by velocity criteria. Note that this was better assessed on today's CT angiogram of the neck. 2. There is no sonographic evidence of hemodynamically significant stenosis w ithin the left carotid arterial system. 3. Antegrade flow is shown in the vertebral arteries. ACT 112: Negative or not required by law. Electronically signed by: Demarcus De Anda M.D. 01/21/2022 6:43 PM Dictated:01/21/221838 Transcribed: 01/21/221838 Hospital Course (1) LUE weakness: (2) Internal carotid artery stenosis: (3) Diabetes mellitus, type 2: (4) Elevated troponin: (5) Hypertension: (6) CKD (chronic kidney disease) stage 4, GFR 15-29 ml/min: This is an 81-year-old male who has a significant past medical history of insulin-dependent T2DM, HTN, HLD, chronic HFpEF, mild aortic stenosis, known PFO, diabetic polyneuropathy, CKD stage IV, secondary hyperparathyroidism, anemia of renal disease and BPH who presents to ED secondary to left upper extremity weakness x1 day. Left upper extremity weakness Acute small right frontal lobe infarct Present on admission with left lower extremity weakness MRI showed Two small acute infarcts measuring up to 7 mm within the posterior right frontal lobe which would account for the patient's left arm weakness. Carotid u/s showed Atherosclerotic plaque with evidence of 50-69% stenosis of the proximal right internal carotid artery by velocity criteria CTA neck showed Severe (80%) stenosis of the proximal right internal carotid artery. Moderate plaque within the left carotid bifurcation without stenosis. ECHO showed no segmental left ventricular wall motion abnormalities. No interatrial septum is intact with no evidence for an atrial septal defect Neuro on board recommended dual antiplatelet therapy with Asa and plavix and Crestor increased to 40mg daily PT/OT/Speech on board - Stable vascular surgery consulted Follow up with neurology in 4-6 weeks Severe right internal carotid artery stenosis 80% Carotid u/s showed Atherosclerotic plaque with evidence of 50-69% stenosis of the proximal right internal carotid artery by velocity criteria CTA neck showed Severe (80%) stenosis of the proximal right internal carotid artery. Moderate plaque within the left carotid bifurcation without stenosis. Vascular surgery plan for carotid endarterectomy on Wednesday Pt does not want to stay in the hospital in the meantime, He is coming on Wednesday for the surgery Vascular surgery ok for patient to be discharge on plavix and aspirin Plan to get the carotid endarterectomy on Wednesday Pt was advised if he develops any neurological symptoms to seek urgent medical attention for emergency carotid endarterectomy. Elevated troponin Patient denies chest pain EKG without ischemic change Ankit sensitivity Troponin in the low 20's T2DM, insulin-dependent Most A1c 6.3 on 01/22/22 Lantus/NovoLog per protocol hold home regimen of Toujeo, Humalog and Symlin, will resume on discharge HTN Blood pressure controlled Continue amlodipine and losartan Chronic HFpEF Mild aortic stenosis Prior diagnosis of PFO Euvolemic Last echocardiogram 05/2021 revealed EF 55 to 59%, moderate left ventricular concentric hypertrophy, mild aortic stenosis, grade 1 diastolic dysfunction Daily weights, strict I's and O's Continue losartan and Lasix CKD stage IV Baseline creatinine 2.1 creatinine stable at 1.7 Anemia of renal disease Hemoglobin stable 11.9 Monitor DVT prophylaxis: SCD/TEDS for now, PCP: Jerry FULL CODE Disposition Discharge home Total Time Total Time Spent Total Time Spent (In Minutes): 35 minutes Discharge Plan Discharge Items Patient Disposition: Home - Self-Care Reason For Visit: ACUTE CVA Discharge Diagnosis: Acute infarct in right frontal lobe Left Upper extremity weakness: Right Internal carotid artery stenosis: Diabetes mellitus, type 2: Elevated troponin: Hypertension: CKD (chronic kidney disease) stage 4 Activity: Resume your previous activity Non-emergency contact: Primary Care Provider, Surgeon and Neurologist Call non-emergency contact if: you have any medication questions Follow-up/Referrals: Connor Edwards MD [Primary Care Provider] - (Date & Time 01/27/2022 11:00 AM Provider Connor Edwards MD Department General Internal Medicine [facility] ) Adriana Zhong PA-C [Physician Plant Operator Control Room Operator] - (Date & Time 02/20/2022 11:20 AM Provider Adriana Zhong PA-C Department Neurology [facility] ) Diet: Carb Consistent or DM2 and Heart Healthy Addtl Attending Provider Instructions: Follow up with your primary care provider on 01/27/2022 @ 11:00 AM Connor Edwards MD Department General Internal Medicine [facility] Follow up with neurology on 02/20/2022 at 11:20 AM Adriana Zhong PA-C Department Neurology [facility] Follow up with vascular surgery Dr. Shane on Wednesday (01/26/22) for right carotid endarterectomy procedure Please call [phone] on Wednesday after 2:00pm to get the time you need to register for surgery on Wednesday Continue dual antiplatelet therapy with aspirin and Plavix Seek urgent medical attention if your symptoms reoccur to come back to the emergency room for urgent carotid endarterectomy. Fall precaution Avoid any NSAID such as motrin, aleve, naproxen, ibuprofen, Advil due to risk of bleeding (Seek medical attention if you develop any bleeding) Crestor (Rosuvastatin) increased to 40mg daily Addtl Band Saw Filer Provider Instructions: If discharged before Wednesday, call [phone] on Wednesday after 2:00pm to get the time he needs to register for surgery on Wednesday Pending Studies at Discharge: No Stand-Alone Forms: Medications to Prevent Stroke, My [facility], Smoking Cessation Medications and DC Order Prescriptions: New clopidogrel 75 mg Tablet 75 mg PO QAM Qty: 30 RF: 0 pantoprazole 40 mg Tablet,Delayed Release (Dr/Ec) 40 mg PO QAM Qty: 30 RF: 0 rosuvastatin [Crestor] 40 mg tablet 40 mg PO DAILY Qty: 30 RF: 0 Continued amlodipine 5 mg Tablet 5 mg PO QAM RF: 0 furosemide 20 mg Tablet 40 mg PO DAILY RF: 0 insulin lispro [Humalog KwikPen Insulin] 100 unit/mL Insulin Pen 40 unit SUBCUT AC RF: 0 SymlinPen 120 2,700 mcg/2.7 mL Pen Injector 120 mcg SUBCUT BID RF: 0 cholecalciferol (vitamin D3) 2,000 unit Capsule 2,000 unit PO QAM RF: 0 Toujeo SoloStar U-300 Insulin 300 unit/mL (1.5 mL) Insulin Pen 50 unit SUBCUT BID RF: 0 levothyroxine 137 mcg tablet 137 mcg PO DAILY RF: 0 sildenafil 50 mg tablet 50 mg PO USEASDIRECTD RF: 0 allopurinol 100 mg tablet 100 mg PO BID RF: 0 aspirin 81 mg Tablet,Chewable 81 mg PO DAILY RF: 0 finasteride 5 mg tablet 5 mg PO DAILY RF: 0 alfuzosin 10 mg tablet extended release 24 hr 10 mg PO DAILY RF: 0 losartan 50 mg tablet 50 mg PO DAILY RF: 0 coenzyme Q10 100 mg Capsule 100 mg PO DAILY RF: 0 omega-3 fatty acids Capsule 1,000 mg PO BID RF: 0 Discontinued omeprazole 20 mg Capsule,Delayed Release(Dr/Ec) 20 mg PO QAM RF: 0 rosuvastatin 20 mg tablet 20 mg PO DAILY RF: 0 Discharge Orders: Discharge Order (Routine); Ordered 01/22/22 Ordered By: Abraham Corado Admission Data Admit Date/Time: 01/21/22 16:34 Attending Provider: Abraham Corado Admit Provider: Rosa Townsend I. Primary Care Provider: Connor Edwards Other Providers: Rosa Townsend I. ; Red Jacinto ; Jase Shane Other Interventions: Discharge Summary Assessment (RN) Last Done: 01/22/22 15:00
--- NOTE | 2022-01-22 17:06 | Pharmacy Report ---
Pharmacist Stroke Counseling - Date of Service January 22, 2022 - Scope: Pharmacy has been consulted to provide medication discharge counseling for this patient admitted with [ischemic stroke] [hemorrhagic stroke] [transient ischemic attack] as per the Pharmacist Discharge Counseling for Stroke Patients Protocol . - Medications on Discharge: Home Medications Medication Instructions Recorded Confirmed amlodipine 5 mg tablet 5 mg PO QAM 01/02/19 01/21/22 cholecalciferol (vitamin D3) 50 2,000 unit PO QAM 01/02/19 01/21/22 mcg (2,000 unit) capsule furosemide 20 mg tablet 40 mg PO DAILY 01/02/19 01/21/22 insulin glargine U-300 conc 300 50 unit SUBCUT BID 01/02/19 01/21/22 unit/mL (1.5 mL) subcutaneous pen (Toujeo SoloStar U-300 Insulin) insulin lispro 100 unit/mL 40 unit SUBCUT AC 01/02/19 01/21/22 subcutaneous pen (Humalog KwikPen (U-100) Insulin) pramlintide 2,700 mcg/2.7 mL 120 mcg SUBCUT BID 01/02/19 01/21/22 subcutaneous pen injector (SymlinPen 120) alfuzosin 10 mg tablet,extended 10 mg PO DAILY 01/21/22 01/21/22 release 24 hr allopurinol 100 mg tablet 100 mg PO BID 01/21/22 01/21/22 aspirin 81 mg chewable tablet 81 mg PO DAILY 01/21/22 01/21/22 coenzyme Q10 100 mg capsule 100 mg PO DAILY 01/21/22 01/21/22 finasteride 5 mg tablet 5 mg PO DAILY 01/21/22 01/21/22 levothyroxine 137 mcg tablet 137 mcg PO DAILY 01/21/22 01/21/22 losartan 50 mg tablet 50 mg PO DAILY 01/21/22 01/21/22 omega-3 fatty acids 1,000 mg PO BID 01/21/22 01/21/22 sildenafil 50 mg tablet 50 mg PO USEASDIRECTD 01/21/22 01/21/22 New Rx's Medication Instructions Recorded clopidogrel 75 mg tablet 75 mg PO QAM #30 tab 01/22/22 pantoprazole 40 mg tablet,delayed 40 mg PO QAM #30 tab 01/22/22 release rosuvastatin 40 mg tablet (Crestor) 40 mg PO DAILY #30 tab 01/22/22 - Action: The above medications, specifically ones for stroke treatment/prophylaxis, have been reviewed in detail with the patient and/or patient vendor representatives(s) prior to discharge. This includes indication, common adverse reactions, drug interactions, and medication administration. Medication counseling has been employed using the teach-back method to ensure understanding. - Outcome: The patient and/or patient vendor representatives(s) have demonstrated understanding of the medications. Additional comments: - Patient and had all questions answered prior to discharge. Will follow up with Dr. Shane's office tomorrow regarding ASA and Plavix instruction prior to surgery. Thank you for allowing pharmacy to be involved in the care of this patient. Please call [phone] with any additional questions
== END 2022-01-22 16:55 | disposition home or self-care (01) | DRG 65 ==
LOC: ED 07:52 → 2S 07:52 → SUATTDRO 16:34

== ENCOUNTER 2022-01-26 06:10 | Inpatient (IN) ==
--- NOTE | 2022-01-23 10:09 | Anesthesiology Consultation ---
Date of Service January 23, 2022 Assessment & Plan (1) Encounter for pre-operative examination: - check BSG am DOS. - discharge summary 01/22/22 [facility]: "...Left upper extremity weakness. Acute small right frontal lobe infarct...Two small acute infarcts measuring up to 7 mm within the posterior right frontal lobe...Severe (80%) stenosis of the proximal right internal carotid artery. Moderate plaque within the left carotid bifurcation without stenosis...no segmental left ventricular wall motion abnormalities. No interatrial septum is intact with no evidence for an atrial septal defect. Neuro on board recommended dual antiplatelet therapy with Asa and plavix and Crestor increased to 40mg daily...Follow up with neurology in 4-6 weeks...Vascular surgery plan for carotid endarterectomy on Wednesday...Elevated troponin...denies chest pain. EKG without ischemic change...Chronic HFpEF. Mild aortic stenosis. Prior diagnosis of PFO. Euvolemic..." - Case discussed with Dr. Lion who advised patient acceptable at this time, does not anything additional prior to surgery from anesthesia standpoint. - COVID screening: Per straight cutter on 01/23/2022: Travel screen negative, no known COVID-19 positive contacts or current COVID-19 related symptoms in past 2 weeks. Pt vaccinated. Surgeon arranging preop COVID testing, . Awaiting results. Chart Review Chart Review: Acceptable Risk for Surgery and Patient NOT seen in Pre Admission Testing History Surgery Operation Date: 01/26/22 08:00 Proposed Procedures p Right Carotid Endarterectomy - Jase Shane MD Operation Date: 01/26/22 08:00 Proposed Procedures p Right Carotid Endarterectomy - Jase Shane MD Height/Weight Height: 5 ft 10 in Weight: 119 kg Allergies Allergy/AdvReac Type Severity Reaction Status Date / Time Penicillins Allergy Intermediate HIVES Verified 01/23/22 10:43 Sulfa (Sulfonamide AdvReac Mild Gastrointestinal Verified 01/23/22 10:43 Antibiotics) Upset Medications Home Medications Medication Instructions Recorded Confirmed Last Taken amlodipine 5 mg tablet 5 mg PO QAM 01/02/19 01/23/22 Unknown cholecalciferol (vitamin D3) 50 2,000 unit PO QPM 01/02/19 01/23/22 01/03/19 08:00 mcg (2,000 unit) capsule furosemide 20 mg tablet 40 mg PO QAM 01/02/19 01/23/22 01/03/19 08:00 insulin glargine U-300 conc 300 50 unit SUBCUT BID 01/02/19 01/23/22 01/03/19 21:00 unit/mL (1.5 mL) subcutaneous pen (Toujeo SoloStar U-300 Insulin) insulin lispro 100 unit/mL 40 unit SUBCUT AC 01/02/19 01/23/22 01/03/19 21:00 subcutaneous pen (Humalog KwikPen (U-100) Insulin) pramlintide 2,700 mcg/2.7 mL 120 mcg SUBCUT BID 01/02/19 01/23/22 01/03/19 08:00 subcutaneous pen injector (SymlinPen 120) alfuzosin 10 mg tablet,extended 10 mg PO QAM 01/21/22 01/23/22 Unknown release 24 hr allopurinol 100 mg tablet 100 mg PO BID 01/21/22 01/23/22 Unknown aspirin 81 mg chewable tablet 81 mg PO QAM 01/21/22 01/23/22 Unknown coenzyme Q10 100 mg capsule 100 mg PO QAM 01/21/22 01/23/22 Unknown finasteride 5 mg tablet 5 mg PO QPM 01/21/22 01/23/22 Unknown levothyroxine 137 mcg tablet 137 mcg PO QAM 01/21/22 01/23/22 Unknown losartan 50 mg tablet 50 mg PO QAM 01/21/22 01/23/22 Unknown omega-3 fatty acids 1,000 mg PO BID 01/21/22 01/23/22 Unknown sildenafil 50 mg tablet 50 mg PO USEASDIRECTD PRN 01/21/22 01/23/22 Unknown clopidogrel 75 mg tablet 75 mg PO QAM #30 tab 01/22/22 01/23/22 Unknown pantoprazole 40 mg tablet,delayed 40 mg PO QAM #30 tab 01/22/22 01/23/22 Unknown release rosuvastatin 40 mg tablet (Crestor) 40 mg PO QPM 01/23/22 01/23/22 Unknown turmeric root extract 500 mg 750 mg PO BID 01/23/22 01/23/22 Unknown capsule Past Medical History Medical History Anemia H&H: Aortic root dilation mild Aortic stenosis mild Chronic heart failure EF 60-65%; grade 1 diastolic dysfunction CKD (chronic kidney disease) stage 4, GFR 15-29 ml/min CVA (cerebral vascular accident) 2 small acute infarcts posterior R frontal lobe 01/21/22 Diabetes mellitus, type 2 IDDM Diverticular disease Fatty liver GERD (gastroesophageal reflux disease) History of skin cancer EXCISION FROM THIGH Hyperlipidemia Hypertension Hypothyroidism Internal carotid artery stenosis 80% stenosis proximal R ICA; moderate plaque in left carotid bifurcation without stenosis per 01/21/22 neck CTA PFO (patent foramen ovale) Polyneuropathy QT prolongation Secondary hyperparathyroidism Past Family History Family History (Updated 01/23/22 @ 10:57 by Herminia Ramírez, EUN) Father Colorectal cancer Mother No problems noted. Other No family history of adverse response to anesthesia Denies family history of Stroke Past Surgical History Surgical History (Updated 01/23/22 @ 10:56 by Herminia Ramírez, EUN) History of arthroscopy B/L SHOULDER REPAIRS History of cataract extraction with lens replacement bilateral History of cholecystectomy History of colonoscopy History of laminectomy CERVIAL LAMI S/T SPINAL STENOSIS--pt states he has normal ROM History of prostate surgery HX OF GREENLIGHT TURP; TURP 01/04/19: LMA#5. No postop issues per anesthesia progress note. History of surgery on arm left arm ligament reattachment History of tonsillectomy History of tooth extraction Social History Smoking Status: Never smoker Smoking cigarettes per day: 0 Hx Alcohol Use: Yes Alcohol type: other alcohol intake frequency: holidays/special occasions only Hx Substance Use: No Lab Results Anesthesia Preop Results Results Anesthesia Widget: WBC 6.18 K/uL (4.8-10.8) 01/22/22 Hgb 11.9 g/dL (14.0-18.0) L 01/22/22 Hct 34.5 % (42-52) L 01/22/22 Plt 189 K/uL (130-400) 01/22/22 Na 140 mmol/L (136-145) 01/22/22 K 3.6 mmol/L (3.5-5.1) 01/22/22 Cl 108 mmol/L (98-107) H 01/22/22 CO2 25 mmol/L (21-32) 01/22/22 BUN 26 mg/dl (6-23) H 01/22/22 Creat 1.71 mg/dl (0.6-1.4) H 01/22/22 Glucose Level 73 mg/dl (70-99(Fasting)) 01/22/22 POC Glucose 117 mg/dl (70-99) H 01/22/22 PT 10.5 Seconds (9.0-12.0) 01/21/22 PTT 24.3 Seconds (21.0-31.0) 01/21/22 INR 1.0 (0.9-1.1) 01/21/22 HA1c 6.3 % (4.5-5.6) H 01/22/22 Testing Electrocardiogram Date: 01/21/22 NSR with sinus arrhythmia, rate 68 bpm Prolonged QT Chest X-Ray Date: 01/21/22 * 1 view* No acute cardiopulmonary findings Echocardiogram Date: 01/21/22 EF 60-65% No LV wall motion Mild cLVH Mild valvular aortic stenosis Mild aortic root dilation Interatrial septum is intact with no evidence for an atrial septal defect Other Testing Neck CTA 01/21/22 1. 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 2. Moderate plaque within the left carotid bifurcation without stenosis. 3. Suboptimal evaluation of the vertebral artery origins due to motion artifact. Brain MRI 01/21/22 Two small acute infarcts measuring up to 7 mm within the posterior right frontal lobe which would account for the patient's left arm weakness. No mass effect. No acute hemorrhage.
[~2022-01-26 06:10] MED LIST changes: -AMLO5TAB2 PO; -ASPI81TA28 PO; -CHOL2000 PO; -FURO-85 PO; -INSDGI SC; -INSU100I2 SC; +LACTATED RINGER'S 1,000 ML IV SCH; -LEVO125T5 PO; -LOSA100T65 PO; -OMEP20TA14 PO; -SIMV40TA2 PO; -TAMS0.4C38 PO; -[UNRECOGNIZED DRUG - CODE] SC
[2022-01-26] MEDS ORDERED: LARYING-O-JET KIT (LTA) ONE (06:39)
[2022-01-26] MEDS ORDERED: PROPOFOL IV EMULSION 10 MG/ML 20 ML VIAL IV ONE ×3 (06:39→10:40)
[2022-01-26] MEDS ORDERED: ONDANSETRON INJ 2 MG/ML 2 ML VIAL ONE (06:39)
[2022-01-26] MEDS ORDERED: fentaNYL citrate 100 MCG/2 ML VIAL ONE ×3 (06:39→10:47)
[2022-01-26] MEDS ORDERED: ROCURONIUM BROMIDE 10 MG/ML 5 ML VIAL IV ONE ×2 (06:39→08:58)
[2022-01-26] MEDS ORDERED: LIDOCAINE 2% 2 ML VIAL/AMP(20MG/ML) INFIL ONE (06:39)
[2022-01-26] MEDS ORDERED: CLINDAMYCIN/D5W 600 MG/54 ML BAG IV SCH (07:00)
[2022-01-26] MEDS ORDERED: LABETALOL HCL IV 5 MG/ML 20ML IV PRN (07:20)
[2022-01-26] MEDS ORDERED: ATROPINE SULFATE 0.1 MG/ML 10ML SYR IV PRN (07:20)
[2022-01-26] MEDS ORDERED: fentaNYL citrate 100 MCG/2 ML VIAL IV PRN (07:20)
[2022-01-26] MEDS ORDERED: PROMETHAZINE HCL 6.25 MG in SODIUM CHLORIDE 0.9% 50 ML IV PRN (07:20)
[2022-01-26] MEDS ORDERED: ONDANSETRON INJ 2 MG/ML 2 ML VIAL IV PRN (07:20)
[2022-01-26] MEDS ORDERED: HEPARIN (PORCINE) 1000 UNIT/ML 10 ML (CATH LAB USE ONLY) ONE (07:21)
[2022-01-26] MEDS ORDERED: LIDOCAINE 1% LOCAL 20 ML VIAL ONE (07:22)
[2022-01-26] MEDS ORDERED: BUPIVACAINE 0.5 % 5 MG/1 ML MPF 30ML VIAL ONE (07:23)
[2022-01-26] MEDS ORDERED: EPINEPHrine INJ 1 MG/ML AMP ONE (07:23)
[2022-01-26] MEDS ORDERED: GELATIN SPONGE SZ 100 ONE (07:24)
[2022-01-26] MEDS ORDERED: THROMBIN FOR SOLN 20000 UNIT KIT ONE (07:24)
--- NOTE | 2022-01-26 07:34 | History & Physical Report ---
Date of Service January 26, 2022 History of Present Illness Primary Care Provider: Connor Edwards MD [facility], [id number] Consultation Signed Patient:EMMY ALEXANDER Admit Date:01/21/22 MR#:[id number] Att Phy:Abraham Corado M.D. Acct ID:[id number] Tania Phy:Connor Edwards MD Date:1940 Fam Phy: Age:81 Location:2S Sex:M Room/Bed:S239-1 cc: ~ *NOTICE TO RECEIVING DEMOCRAT/AGENCY This information is strictly Confidential and protected under [place] law. [place] law prohibits you from making any further disclosure of this information unless further disclosure is expressly permitted by the written consent of the person to whom it pertains or is authorized by law. A general authorization for the release of medical or other information is not sufficient for this purpose. Hospital accepts no responsibility if the information is made available to any other person, INCLUDING THE PATIENT. Date of Consultation January 22, 2022 Assessment & Plan (1) Stenosis of right internal carotid artery with cerebral infarction: This patient was found to have a severe 80% stenosis of his right internal carotid artery at the origin. This indeed correlates with the MRI finding of 2 small infarcts in the posterior right frontal lobe. At this point recommend carotid endarterectomy. This will be scheduled this coming week. I have discussed the risks options and benefits of the procedure with the patient. The patient understands the risks options and benefits and agrees to the procedure. He can be discharged meantime on Plavix and aspirin. If he develops more symptoms then he will need to come back to emergency room for urgent carotid endarterectomy. As of now he scheduled for Wednesday morning for his right carotid endarterectomy procedure. Thank you very much for letting us participate in the care of this patient. History of Present Illness Reason for Consultation: Severe right carotid artery stenosis Attending Physician: Abraham Corado MD History of Present Illness This patient is 81-year-old male who has a history of diabetes mellitus type 2, hypertension, hyperlipidemia, mild aortic stenosis, stage IV chronic kidney disease, hyperparathyroidism, benign prostatic hypertrophy, diabetic polyneuropathy, and anemia due to his chronic renal disease. He also has a known history of PFO. He presented to [facility] on 518 with left upper extremity weakness x1 day. He felt like his left arm was not usable. This was the primary event. He had never had this feeling prior to this. At this point he thinks his arm is markedly improved and is back to baseline. He does have numbness in both feet due to his polyneuropathy. This has not changed. He had no other neurological complaints at the time of admission. He denied any shortness of breath, abdominal pain, or chest pain at the time of admission. Allergies Allergy/AdvReac Type Severity Reaction Status Date / Time Penicillins Allergy Unknown HIVES Verified 01/21/22 09:55 SULFA DRUGS Allergy Unknown GI issues Uncoded 01/21/22 09:55 Home Medications Medication Instructions Recorded Confirmed Type amlodipine 5 mg tablet 5 mg PO QAM 01/02/19 01/21/22 History cholecalciferol (vitamin D3) 50 2,000 unit PO QAM 01/02/19 01/21/22 History mcg (2,000 unit) capsule furosemide 20 mg tablet 40 mg PO DAILY 01/02/19 01/21/22 History insulin glargine U-300 conc 300 50 unit SUBCUT BID 01/02/19 01/21/22 History unit/mL (1.5 mL) subcutaneous pen (Toujeo SoloStar U-300 Insulin) insulin lispro 100 unit/mL 40 unit SUBCUT AC 01/02/19 01/21/22 Hist ory subcutaneous pen (Humalog KwikPen (U-100) Insulin) omeprazole 20 mg capsule,delayed 20 mg PO QAM 01/02/19B 2 History release pramlintide 2,700 mcg/2.7 mL 120 mcg SUBCUT BID 01/02/19 01/21/22 Hi story subcutaneous pen injector (SymlinPen 120) alfuzosin 10 mg tablet,extended 10 mg PO DAILY 01/21/22 01/21/22 History release 24 hr allopurinol 100 mg tablet 100 mg PO BID 01/21/22 01/21/22 Histo ry aspirin 81 mg chewable tablet 81 mg PO DAILY 01/21/22 01/21/22 H istory coenzyme Q10 100 mg capsule 100 mg PO DAILY 01/21/22 01/21/22 His tory finasteride 5 mg tablet 5 mg PO DAILY 01/21/22 01/21/22 History levothyroxine 137 mcg tablet 137 mcg PO DAILY 01/21/22 01/21/22 Hi story losartan 50 mg tablet 50 mg PO DAILY 01/21/22 01/21/22 History omega-3 fatty acids 1,000 mg PO BID 01/21/22 01/21/22 History rosuvastatin 20 mg tablet 20 mg PO DAILY 01/21/22 01/21/22 Histo ry sildenafil 50 mg tablet 50 mg PO USEASDIRECTD 01/21/22 01/21/22 Histo ry Patient History Medical History Cardiac murmur HX OF PREVIOUSLY AUSCULTATED MURMUR. PT HAD ECHO AND CARDIAC WORKUP. FOLLOWS WITH DR. WAY (chronic kidney disease) stage 4, GFR 15-29 ml/min Diabetes mellitus, type 2 Diverticular disease Fatty liver GERD (gastroesophageal reflux disease) History of skin cancer EXCISION FROM THIGHHyperlipidemia Hypertension Hypothyroidism Secondary hyperparathyroidism Surgical History History of arthroscopy B/L SHOULDER REPAIRSHistory of cataract extraction with lens replacement History of cholecystectomy History of colonoscopy History of laminectomy CERVIAL LAMI S/T SPINAL STENOSIS.History of prostate surgery HX OF GREENLIGHT TURP 10+ YEARS AGOHistory of surgery on arm LIGAMENTHistory of tonsillectomy Family History Father Colorectal cancerMother No problems noted. Denies family history of Stroke Social History Smoking Status: Never smoker Cigarettes Per Day: 0; Second Hand Exposure: No; Hx Alcohol Use: Yes Alcohol type: other Hx Substance Use: No Preferred Language: Senegalese Communication Ability: Effective Bushwalking Guide Required: No Beliefs That Will Affect Care: None marital status: Current Living Situation: Spouse Current Living Situation Comment: How many Children do You have: 7 Other Information That Helps Us Care for You: No Feels Safe at Home: Yes Safety Concerns: Feels Safe At This Time Assistive Devices: None Review of Systems Review of Systems: All systems reviewed & are unremarkable except as noted in HPI & below Physical Exam Constitutional: WD/WN, vitals as above Eyes: reactive pupils; no eyelid abnormality ENMT: Mouth: no tongue abnormality Neck: trachea midline Respiratory: normal respiratory effort; no respiratory distress Auscultation: lungs clear to auscultation bilaterally Cardiovascular: Rate/Rhythm: regular rate and regular rhythm Heart Sounds: normal S1 and normal S2 Vessels: posterior tibial pulses present, dorsalis pedis pulses present and radial pulses present Gastrointestinal (Abdomen): normal bowel sounds, soft, nontender, no hepatosplenomegaly Musculoskeletal: no cyanosis or clubbing, extremities motor strength 5/5 Neurologic: CN's II-XI intact bilaterally and moves all extremities Speech / Cognition: normal speech Motor/Sensory: + sensory deficit (decreased sensation of feet); normal movement Cranial Nerves: PERRL, normal facial strength, tongue midline and able to rotate head bilaterally Psychiatric: Orientation: alert and oriented x 3 Results & Data ([facility]) Vital Signs (Past 12 Hours) Vital Signs Temp Pulse Resp BP Pulse Ox 01/22/22 11:14 36.7 C 66 18 174/85 H 94 01/22/22 07:01 36.7 C 65 18 167/87 H 96 01/22/22 03:51 36.6 C 60 18 154/77 H 98 Diagnostic Findings CTA neck-Severe (80%) stenosis of the proximal right internal carotid artery. Moderate plaque within the left carotid bifurcation without stenosis. Suboptimal evaluation of the vertebral artery origins due to motion artifact. MRI brain-Two small acute infarcts measuring up to 7 mm within the posterior right frontal lobe which would account for the patient's left arm weakness. No mass effect. No acute hemorrhage. Signed By: <Electronically signed by Jase Shane MD> 01/22/22 1452 Created:01/22/22 1440 The status of this report isSigned. Draft = Not yet reviewed or approved by Medical Physician. Signed = Reviewed and approved by Medical Physician. Allergies Allergy/AdvReac Type Severity Reaction Status Date / Time Penicillins Allergy Intermediate HIVES Verified 01/26/22 06:34 Sulfa (Sulfonamide AdvReac Mild Gastrointestinal Verified 01/26/22 06:34 Antibiotics) Upset Home Medications Medication Instructions Recorded Confirmed Type amlodipine 5 mg tablet 5 mg PO QAM 01/02/19 01/26/22 History cholecalciferol (vitamin D3) 50 2,000 unit PO QPM 01/02/19 01/26/22 History mcg (2,000 unit) capsule furosemide 20 mg tablet 40 mg PO QAM 01/02/19 01/26/22 History insulin glargine U-300 conc 300 50 unit SUBCUT BID 01/02/19 01/26/22 History unit/mL (1.5 mL) subcutaneous pen (Toujeo SoloStar U-300 Insulin) insulin lispro 100 unit/mL 40 unit SUBCUT AC 01/02/19 01/26/22 History subcutaneous pen (Humalog KwikPen (U-100) Insulin) pramlintide 2,700 mcg/2.7 mL 120 mcg SUBCUT BID 01/02/19 01/26/22 History subcutaneous pen injector (SymlinPen 120) alfuzosin 10 mg tablet,extended 10 mg PO QAM 01/21/22 01/26/22 History release 24 hr allopurinol 100 mg tablet 100 mg PO BID 01/21/22 01/26/22 History aspirin 81 mg chewable tablet 81 mg PO QAM 01/21/22 01/26/22 History coenzyme Q10 100 mg capsule 100 mg PO QAM 01/21/22 01/26/22 History finasteride 5 mg tablet 5 mg PO QPM 01/21/22 01/26/22 History levothyroxine 137 mcg tablet 137 mcg PO QAM 01/21/22 01/26/22 History losartan 50 mg tablet 50 mg PO QAM 01/21/22 01/26/22 History omega-3 fatty acids 1,000 mg PO BID 01/21/22 01/26/22 History sildenafil 50 mg tablet 50 mg PO USEASDIRECTD PRN 01/21/22 01/26/22 History clopidogrel 75 mg tablet 75 mg PO QAM #30 tab 01/22/22 01/26/22 Rx pantoprazole 40 mg tablet,delayed 40 mg PO QAM #30 tab 01/22/22 01/26/22 Rx release rosuvastatin 40 mg tablet (Crestor) 40 mg PO QPM 01/23/22 01/26/22 History turmeric root extract 500 mg 750 mg PO BID 01/23/22 01/26/22 History capsule Past Med/Surg History Medical History Anemia H&H: 11/34 Aortic root dilation mild Aortic stenosis mild Chronic heart failure EF 60-65%; grade 1 diastolic dysfunction CKD (chronic kidney disease) stage 4, GFR 15-29 ml/min CVA (cerebral vascular accident) 2 small acute infarcts posterior R frontal lobe 01/21/22 Diabetes mellitus, type 2 IDDM Diverticular disease Fatty liver GERD (gastroesophageal reflux disease) History of skin cancer EXCISION FROM THIGH Hyperlipidemia Hypertension Hypothyroidism Internal carotid artery stenosis 80% stenosis proximal R ICA; moderate plaque in left carotid bifurcation without stenosis per 01/21/22 neck CTA PFO (patent foramen ovale) Polyneuropathy QT prolongation Secondary hyperparathyroidism Surgical History History of arthroscopy B/L SHOULDER REPAIRS History of cataract extraction with lens replacement bilateral History of cholecystectomy History of colonoscopy History of laminectomy CERVIAL LAMI S/T SPINAL STENOSIS--pt states he has normal ROM History of prostate surgery HX OF GREENLIGHT TURP; TURP 01/04/19: LMA#5. No postop issues per anesthesia progress note. History of surgery on arm left arm ligament reattachment History of tonsillectomy History of tooth extraction Family History (Updated 01/23/22 @ 10:57 by Herminia Ramírez RN) Father Colorectal cancer Mother No problems noted. Other No family history of adverse response to anesthesia Denies family history of Stroke Social History Smoking Status: Never smoker Second Hand Exposure: No; Do You Dip or Chew Tobacco: No; Tobacco Cessation Education Requested by Patient: No Hx Alcohol Use: Yes Alcohol type: beer, wine and hard liquor Hx Substance Use: No Preferred Language: Senegalese Communication Ability: Effective Bushwalking Guide Required: No Beliefs That Will Affect Care: None marital status: Current Living Situation: Spouse Current Living Situation Comment: How many Children do You have: 7 Other Information That Helps Us Care for You: No Feels Safe at Home: Yes Safety Concerns: Feels Safe At This Time Assistive Devices: Glasses Assistive Devices Comment: reading glasses Results & Data ([facility]) Vital Signs (Past 12 Hours) Vital Signs Temp Pulse Resp BP Pulse Ox 01/26/22 07:01 36.6 C 84 20 150/82 H 95
--- NOTE | 2022-01-26 07:35 | History & Physical Bridge Note ---
Date of Service January 26, 2022 History & Physical Bridge Note Patient for a right CEA today. I have discussed the risks options and benefits of the procedure with the patient. The patient understands the risks options and benefits and agrees to the procedure. I have examined the patient, reviewed the History & Physical and in the interval since the performance of the History & Physical I have noted the following changes of clinical significance: no changes noted
[2022-01-26] MEDS ORDERED: LACTATED RINGER'S 1,000 ML IV SCH (07:45)
[2022-01-26] MEDS ORDERED: PHENYLEPHRINE HCL 10 MG/ML VIAL ONE (08:38)
[2022-01-26] MEDS ORDERED: ePHEDrine sulfate 50 MG/ML SYR ONE (10:08)
[2022-01-26] MEDS ORDERED: HEPARIN SOD (PORCINE) 1000 UNIT/ML ONE (10:08)
--- NOTE | 2022-01-26 10:37 | Post Operative Brief Note ---
Immediate Post Op Note v1 Date of Surgery January 26, 2022 Pre & Post Diagnosis Operation Date: 01/26/22 08:00 <No data on this case meets the specified criteria> Operation Date: 01/26/22 08:00 Pre-Op Diagnosis: Carotid Stenosis Right Post-Op Diagnosis: Carotid Stenosis Right I identified the patient and participated in the time-out.: Yes Procedure Operation Date: 01/26/22 08:00 <No data on this case meets the specified criteria> Operation Date: 01/26/22 08:00 Actual Procedures p Right Carotid Endarterectomy with bovine patch(Right) - Jase Shane MD Surgeon Jase Shane MD Chief Wharfinger MD Cristhian L.Minarchick,PAC Estimated Blood Loss 40 Findings Consistent with Post-Op Diagnosis Anesthesia Type General Complications none Disposition Accompanied Patient To Recovery: No Disposition: Recovery Room
[2022-01-26] MEDS ORDERED: GLYCOPYRROLATE 0.2 MG/ML VIAL ONE (10:40)
[2022-01-26] MEDS ORDERED: NEOSTIGMINE METHYLSULFATE 1 MG/ML 10ML VIAL ONE (10:40)
--- NOTE | 2022-01-26 10:55 | Operative Report ---
Post Operative Report Pre & Post Diagnosis Operation Date: 01/26/22 08:00 <No data on this case meets the specified criteria> Operation Date: 01/26/22 08:00 Pre-Op Diagnosis: Carotid Stenosis Right Post-Op Diagnosis: Carotid Stenosis Right I identified the patient and participated in the time-out.: Yes Procedure Operation Date: 01/26/22 08:00 <No data on this case meets the specified criteria> Operation Date: 01/26/22 08:00 Actual Procedures p Right Carotid Endarterectomy(Right) - Jase Shane MD Surgeon Jase Shane MD Head Grinder MD Luis Morrowarchshira,PAC Estimated Blood Loss 40 Findings Consistent with Post-Op Diagnosis intact neuro exam at the end of the case. Fluids 1 L crystalloids Specimens R carotid plaque Drains none Anesthesia Type General Complications None Indications 81-year-old male who has a history of diabetes mellitus type 2, hypertension, hyperlipidemia, mild aortic stenosis, stage IV chronic kidney disease, hyperparathyroidism, benign prostatic hypertrophy, diabetic polyneuropathy, and anemia due to his chronic renal disease. He also has a known history of PFO. He presented to [facility] on 01/21 with left upper extremity weakness. At this point he thinks his arm is markedly improved and is back to baseline. He does have numbness in both feet due to his polyneuropathy. This has not changed. He had no other neurological complaints at the time of admission. He was found to have severe R carotid artery stenosis. He was consented for Right carotid artery endarterectomy. Description of Procedure The patient was taken to the operating room and placed in supine position. The patient was identified and a timeout performed. After general anesthesia was accomplished the Right side of the neck was prepped and draped in a sterile manner. A longitudinal neck incision was then made coursing along the medial border of the sternocleidomastoid muscle. The incision was taken down through the platysmal layer. The facial vein was identified, ligated, and divided. The common carotid artery was then seen. It was dissected free down to the omohyoid muscle. The dissection was carried upward until the external carotid artery and superior thyroid artery was seen. The superior thyroid artery was slung with a 2-0 silk suture. The external carotid was slung with a red rubber vessel loop. Next the dissection was carried up along the internal carotid artery. This was carried upward to beyond the area of narrowing. The hypoglossal nerve was seen and preserved. The patient was heparinized with 8000 unit of IV heparin. After adequate heparinization was accomplished, the internal, external, and common carotid arteries were clamped. A longitudinal arteriotomy was started on the common carotid artery and extended upward along the internal carotid artery to a point beyond the area of narrowing. There was calcified plaque of the internal carotid artery origin. A Doppler shunt was then placed in the internal, followed by the common carotid artery and held in place with Jae clamps. There was good back bleeding seen from the internal carotid artery. The endarterectomy was then started in the appropriate plane on the common carotid artery. This was carried upward and the external carotid was everted and endarterectomized. The endarterectomy was then carried up along the internal carotid artery till a nice feathering breakoff point was accomplished beyond the end of the plaque. The endarterectomy was then carried down further on the common carotid artery. At end of the arteriotomy, the plaque was then transected. Under loop magnification, all loose debris and flaps were removed. Distal flap was tacked with 7-0 Prolene suture. The arteriotomy then closed using a bovine pericardial patch and a running 5-0 Prolene suture. This was done in the usual vascular fashion. Prior to completing the closure, the doppler shunt was removed and the internal and common carotid arteries were reclamped. Backbleeding and forward bleeding was allowed to occur. The flow surface was irrigated with heparinized saline. The final few sutures were then placed and securely tied. Clamps were then removed off the external and common carotid arteries. The clamp was then removed the internal carotid artery. Good distal flow was seen. Adequate hemostasis was seen of the patch. The wound was inspected and adequate hemostasis was obtained. The wound was irrigated with antibiotic solution. It was then closed with a running 3-0 Vicryl suture for the platysmal layer and a 4-0 subcuticular Vicryl suture for the skin edges. Dermabond was used for dressing. The patient left the operating room in satisfactory condition and tolerated the procedure well. Dr. Shane was present for the entirety of the procedure. I attest to the content of the Intraoperative Record and any orders documented therein. Any exceptions are noted below. Supervising Physician Co-Signing Physician Notes Jase Shane MD
[2022-01-26] MEDS ORDERED: LABETALOL HCL IV 5 MG/ML 20ML IV ONE (10:57)
--- NOTE | 2022-01-26 12:15 | Anesthesiology Progress Note ---
Date of Service January 26, 2022 Anesthesia Post Procedure Vital Signs Vital Signs: Temp Pulse Pulse Resp BP Pulse Ox 01/26/22 12:05 36.4 C L 57 L 12 115/55 L 94 01/26/22 11:55 63 12 128/56 L 94 01/26/22 11:45 64 12 139/63 95 01/26/22 11:35 68 12 119/65 97 01/26/22 11:25 68 18 146/82 H 95 01/26/22 11:18 36.0 C L 70 12 146/82 H 96 01/26/22 07:01 36.6 C 84 20 150/82 H 95 Transfer of Care Handoff Completed per policy Notes Mental Status: alert / awake / arousable Patient Amnestic to Procedure: Yes Nausea / Vomiting: adequately controlled Pain: adequately controlled Airway Patency, RR, SpO2: stable & adequate BP & HR: stable & adequate Hydration State: stable & adequate Anesthetic Complications: no major complications apparent
[2022-01-26] MEDS ORDERED: NON-FORMULARY MEDICATION (Sildenafil 50 mg tablet) PO PRN (13:26)
[2022-01-26] MEDS ORDERED: MoRPHine SULFATE 4 MG/ML 1 ML CARP\\VIAL IV PRN (13:26)
[2022-01-26] MEDS ORDERED: ICU PROTOCOL FOR HYPERGLYCEMIA SCH (13:45)
[2022-01-26] MEDS: LACTATED RINGER'S 1,000 ML IV SCH ×2 (14:12→23:00)
--- NOTE | 2022-01-26 15:30 | Pulmonary Consultation ---
Date of Consultation January 26, 2022 Assessment & Plan (1) Internal carotid artery stenosis: (2) Chronic dyspnea: 81-year-old male with a past medical history of CKD stage IV, hypertension, diabetes mellitus type 2 and a recent small right frontal lobe infarct who presented to the hospital for an elective right carotid endarterectomy. He is currently in the ICU for post op monitoring. Will defer pain management and hemodynamic management to the vascular surgical team. ICU team is available should the need arise. Patient notes chronic dyspnea. Can further evaluate this on an outpatient basis with PFTs. Suspect some of his dyspnea is related to deconditioning and his chronic comorbidities. Thank you for allowing us to participate in the care of this patient. History of Present Illness Reason for Consultation: 81-year-old male with a past medical history of type 2 diabetes mellitus, hyperlipidemia, hypertension, mild aortic stenosis and stage IV chronic kidney disease who presented to the OR today to undergo carotid endarterectomy. She was discharged from the hospital on 01/22/2022 for left upper extremity weakness and acute small frontal lobe infarct. She was found to have severe right internal carotid artery stenosis of 80%. Patient is currently hemodynamically stable and without any significant complaint. Patient notes chronic shortness of breath and feels deep breath. He denies any history of tobacco abuse. He notes some soreness in his neck. He denies any chest pain, fevers, chills or night sweats. He denies cough. Echo from 01/21/2022 reviewed with an LVEF of 60 to 65%. Grade 1 diastolic dysfunction. Intra-arterial septum intact with no evidence of atrial septal defect. Mild aortic root dilation. Chest x-ray from 01/21/2022 with no acute findings. Creatinine 01/22/2022 was 1.71. Attending Physician: Jase Shane MD Allergies Allergy/AdvReac Type Severity Reaction Status Date / Time Penicillins Allergy Intermediate HIVES Verified 01/26/22 06:34 Sulfa (Sulfonamide AdvReac Mild Gastrointestinal Verified 01/26/22 06:34 Antibiotics) Upset Home Medications Medication Instructions Recorded Confirmed Type amlodipine 5 mg tablet 5 mg PO QAM 01/02/19 01/26/22 History cholecalciferol (vitamin D3) 50 2,000 unit PO QPM 01/02/19 01/26/22 History mcg (2,000 unit) capsule furosemide 20 mg tablet 40 mg PO QAM 01/02/19 01/26/22 History insulin glargine U-300 conc 300 50 unit SUBCUT BID 01/02/19 01/26/22 History unit/mL (1.5 mL) subcutaneous pen (Toujeo SoloStar U-300 Insulin) insulin lispro 100 unit/mL 40 unit SUBCUT AC 01/02/19 01/26/22 History subcutaneous pen (Humalog KwikPen (U-100) Insulin) pramlintide 2,700 mcg/2.7 mL 120 mcg SUBCUT BID 01/02/19 01/26/22 History subcutaneous pen injector (SymlinPen 120) alfuzosin 10 mg tablet,extended 10 mg PO QAM 01/21/22 01/26/22 History release 24 hr allopurinol 100 mg tablet 100 mg PO BID 01/21/22 01/26/22 History aspirin 81 mg chewable tablet 81 mg PO QAM 01/21/22 01/26/22 History coenzyme Q10 100 mg capsule 100 mg PO QAM 01/21/22 01/26/22 History finasteride 5 mg tablet 5 mg PO QPM 01/21/22 01/26/22 History levothyroxine 137 mcg tablet 137 mcg PO QAM 01/21/22 01/26/22 History losartan 50 mg tablet 50 mg PO QAM 01/21/22 01/26/22 History omega-3 fatty acids 1,000 mg PO BID 01/21/22 01/26/22 History sildenafil 50 mg tablet 50 mg PO USEASDIRECTD PRN 01/21/22 01/26/22 History clopidogrel 75 mg tablet 75 mg PO QAM #30 tab 01/22/22 01/26/22 Rx pantoprazole 40 mg tablet,delayed 40 mg PO QAM #30 tab 01/22/22 01/26/22 Rx release rosuvastatin 40 mg tablet (Crestor) 40 mg PO QPM 01/23/22 01/26/22 History turmeric root extract 500 mg 750 mg PO BID 01/23/22 01/26/22 History capsule Patient History Medical History (Updated 01/26/22 @ 15:54 by Gustavo Tolliver MD) Anemia H&H: Aortic root dilation mild Aortic stenosis mild Chronic dyspnea Chronic heart failure EF 60-65%; grade 1 diastolic dysfunction CKD (chronic kidney disease) stage 4, GFR 15-29 ml/min CVA (cerebral vascular accident) 2 small acute infarcts posterior R frontal lobe 01/21/22 Diabetes mellitus, type 2 IDDM Diverticular disease Fatty liver GERD (gastroesophageal reflux disease) History of skin cancer EXCISION FROM THIGH Hyperlipidemia Hypertension Hypothyroidism Internal carotid artery stenosis 80% stenosis proximal R ICA; moderate plaque in left carotid bifurcation without stenosis per 01/21/22 neck CTA PFO (patent foramen ovale) Polyneuropathy QT prolongation Secondary hyperparathyroidism Surgical History History of arthroscopy B/L SHOULDER REPAIRS History of cataract extraction with lens replacement bilateral History of cholecystectomy History of colonoscopy History of laminectomy CERVIAL LAMI S/T SPINAL STENOSIS--pt states he has normal ROM History of prostate surgery HX OF GREENLIGHT TURP; TURP 01/04/19: LMA#5. No postop issues per anesthesia progress note. History of surgery on arm left arm ligament reattachment History of tonsillectomy History of tooth extraction Family History (Updated 01/23/22 @ 10:57 by Herminia Ramírez RN) Father Colorectal cancer Mother No problems noted. Other No family history of adverse response to anesthesia Denies family history of Stroke Social History Smoking Status: Never smoker Second Hand Exposure: No; Do You Dip or Chew Tobacco: No; Tobacco Cessation Education Requested by Patient: No Hx Alcohol Use: Yes Alcohol type: beer, wine and hard liquor Hx Substance Use: No Preferred Language: Panamanian Communication Ability: Effective Tire Maker Required: No Beliefs That Will Affect Care: None marital status: Current Living Situation: Spouse Current Living Situation Comment: How many Children do You have: 7 Other Information That Helps Us Care for You: No Feels Safe at Home: Yes Safety Concerns: Feels Safe At This Time Assistive Devices: Glasses Assistive Devices Comment: reading glasses Review of Systems Review of Systems: All systems reviewed & are unremarkable except as noted in HPI & below Physical Exam Physical Exam: Constitutional: Patient appears to be of their stated age. Patient is in no apparent distress. Patient is well-developed. Eyes: Pupils are equal round and reactive to light. Conjunctivae are normal. Anicteric sclera. Ears nose, mouth and throat: Mallampati class 2. Normal posterior oropharynx. Uvula is midline. Neck: Surgical incision noted on the right base of the neck. No bleeding or oozing noted. Respiratory: Clear to auscultation bilaterally. No use of accessory muscles. No significant clubbing noted. Cardiovascular: Regular rate and rhythm. No murmurs. No edema. Peripheral pulses intact. Gastrointestinal: Normal bowel sounds, soft, nontender and nondistended. No hepatosplenomegaly noted. Musculoskeletal: No cyanosis. Patient is able to move all extremities. Skin: No rashes, warm dry and intact. Neurologic: No obvious focal neurological deficits seen. Psychiatric: Alert and oriented x3 with a euthymic affect. Results & Data Results & Data ([facility]) Vital Signs (Past 12 Hours) Vital Signs Temp Pulse Pulse Pulse Resp BP BP 01/26/22 14:00 54 L 12 123/66 01/26/22 13:56 56 L 15 127/64 01/26/22 13:53 49 L 7 L 01/26/22 13:26 36.4 C 52 L 17 123/65 01/26/22 13:05 36.5 C 53 L 12 106/58 L 01/26/22 12:55 52 L 18 117/51 L 01/26/22 12:45 53 L 12 114/51 L 01/26/22 12:35 51 L 13 108/57 L 01/26/22 12:25 58 L 15 115/61 01/26/22 12:15 55 L 14 118/68 01/26/22 12:05 36.4 C L 57 L 12 115/55 L 01/26/22 11:55 63 12 128/56 L 01/26/22 11:45 64 12 139/63 01/26/22 11:35 68 12 119/65 01/26/22 11:25 68 18 146/82 H 01/26/22 11:18 36.0 C L 70 12 146/82 H 01/26/22 07:01 36.6 C 84 20 150/82 H Pulse Ox 01/26/22 14:00 100 01/26/22 13:56 99 01/26/22 13:53 100 01/26/22 13:26 99 01/26/22 13:05 96 01/26/22 12:55 98 01/26/22 12:45 99 01/26/22 12:35 98 01/26/22 12:25 99 01/26/22 12:15 93 01/26/22 12:05 94 01/26/22 11:55 94 01/26/22 11:45 95 01/26/22 11:35 97 01/26/22 11:25 95 01/26/22 11:18 96 01/26/22 07:01 95 PG Care Time/CCT Total # of Minutes Spent Total Time Spent with Patient: Total time spent is greater than 50% in coordination of care (as documented) at patient's floor/unit and/or counseling patient: Coding Level of Care Code 60237 Inpt Consult Level 3 Diagnoses Internal carotid artery stenosis I65.29 Chronic dyspnea R06.09
[2022-01-26] MEDS: CLINDAMYCIN 600 MG in DEXTROSE 5% 50 ML IV SCH (16:54)
[2022-01-26] MEDS: allopurinoL 100 MG TAB PO SCH ×2 (19:53→20:15)
[2022-01-26] MEDS: FINASTERIDE 5 MG TAB PO SCH ×2 (19:53→20:15)
[2022-01-26] MEDS: ROSUVASTATIN CALCIUM 20 MG TAB PO SCH ×2 (19:54→20:15)
[2022-01-26] MEDS: CHOLECALCIFEROL 1,000 UNITS 25 MCG TAB PO SCH ×2 (19:54→20:15)
[2022-01-26] MEDS: OMEGA-3 (PURIFIED FISH OIL) 1 GM CAP PO SCH ×2 (19:54→20:15)
[2022-01-26] MEDS ORDERED: CALCIUM CARBONATE 500 MG CHEWABLE TAB PO ONE (19:56)
[2022-01-26] MEDS ORDERED: CALCIUM CARBONATE 500 MG CHEWABLE TAB ONE (20:03)
[2022-01-26] MEDS: oxyCODONE/ACETAMINOPHEN 5mg/325mg TAB PO PRN ×2 (20:04→23:47)
[2022-01-26] MEDS ORDERED: NON-FORMULARY MEDICATION (Turmeric Root Extract 500 mg Capsule) PO SCH (21:00)
[2022-01-26] MEDS ORDERED: GLUCOSE 40% GEL 15 GM TUBE PO PRN (21:28)
[2022-01-26] MEDS ORDERED: GLUCOSE 10 TABS/TUBE PO PRN (21:28)
[2022-01-26] MEDS ORDERED: PHARMACY GLYCEMIC MGMT CONSULT PRN (21:28)
[2022-01-26] MEDS ORDERED: GLUCAGON FOR INJ 1 MG VIAL SQ PRN (21:28)
[2022-01-26] MEDS ORDERED: CARBOHYDRATES FOR HYPOGLYCEMIA PO PRN (21:28)
[2022-01-26] MEDS ORDERED: DEXTROSE 50% 50 ML SYRINGE IV PRN (21:28)
[2022-01-26] MEDS: INSULIN ASPART PER UNIT SC SCH (23:23)
[2022-01-26] MEDS ORDERED: INSULIN GLARGINE SOLOSTAR 100 UNITS/ML 3 ML PEN SC ONE (23:30)
[2022-01-27] MEDS: CLINDAMYCIN 600 MG in DEXTROSE 5% 50 ML IV SCH (00:04)
[2022-01-27] MEDS: INSULIN ASPART PER UNIT SC SCH (03:11)
[2022-01-27 05:27] LABS: Basophils # (auto) 0.02 K/uL (0-0.2); Basophils % (auto) 0.3 %; Eosinophils # (auto) 0.23 K/uL (0-0.5); Eosinophils % (auto) 3.5 %; Hematocrit (blood only) 29.7 % (42-52); Immature Granulocytes # (auto) 0.01 K/uL (0.00-0.02); Immature Granulocytes % (auto) 0.2 %; Lymphocytes # (auto) 1.07 K/uL (1.2-3.4); Lymphocytes % (auto) 16.4 %; Mean Corpuscular Hemoglobin 29.9 pg (25-34); Mean Corpuscular Hgb Conc 33.7 g/dL (32-36); Mean Corpuscular Volume 88.7 fL (80-100); Mean Platelet Volume 9.4 fL (7.4-10.4); Monocytes % (auto) 12.3 %; Neutrophils # (auto) 4.38 K/uL (1.4-6.5); Neutrophils % (auto) 67.3 %; Platelet Count 151 K/uL (130-400); RDW Coefficient of Variation 14.2 % (11.5-14.5); RDW Standard Deviation 46.7 fL (36.4-46.3); Red Blood Count 3.35 M/uL (4.7-6.1); White Blood Count 6.51 K/uL (4.8-10.8)
[2022-01-27] MEDS ORDERED: LEVOTHYROXINE SODIUM 137 MCG TABLET PO SCH (06:30)
[2022-01-27] MEDS: LACTATED RINGER'S 1,000 ML IV SCH ×2 (07:04→07:28)
[2022-01-27] MEDS ORDERED: INSULIN ASPART PER UNIT SC SCH (07:30)
[2022-01-27] MEDS: allopurinoL 100 MG TAB PO SCH (08:40)
[2022-01-27] MEDS: OMEGA-3 (PURIFIED FISH OIL) 1 GM CAP PO SCH (08:40)
[2022-01-27] MEDS ORDERED: ASPIRIN 81 MG CHEW PO SCH (09:00)
[2022-01-27] MEDS ORDERED: LOSARTAN POTASSIUM 50 MG TAB PO SCH (09:00)
[2022-01-27] MEDS ORDERED: INSULIN GLARGINE SOLOSTAR 100 UNITS/ML 3 ML PEN SC ONE (09:00)
[2022-01-27] MEDS ORDERED: FUROSEMIDE 40 MG TAB PO SCH (09:00)
[2022-01-27] MEDS ORDERED: amLODIPine BESYLATE 5 MG TAB PO SCH (09:00)
[2022-01-27] MEDS ORDERED: PANTOprazole 40 MG TAB PO SCH (09:00)
[2022-01-27] MEDS ORDERED: ALFUZOSIN HCL 10 MG TAB PO SCH (09:00)
[2022-01-27] MEDS ORDERED: CLOPIDOGREL BISULFATE 75 MG TAB PO SCH (09:00)
[2022-01-27] MEDS ORDERED: NON-FORMULARY MEDICATION (Coenzyme Q10 100 mg Capsule) PO SCH (09:00)
--- NOTE | 2022-01-27 09:49 | Surgery Progress Note ---
Date of Service January 27, 2022 Assessment & Plan (1) Status post carotid endarterectomy: Plan: Pt doing well post op. Discussed with Dr Shane. Plan for d/c home today. Will follow up in office in 2 weeks. Admission and Anticipated Discharge Date Admission Date: January 26, 2022 Subjective 81 yo m POD #1 after R CEA, seen in follow up today. Pt admits some aching discomfort in R neck. Denies REYNOSO, dizziness, chest pain, SOB, abd pain, N/V, new extremity weakness/numbness, facial numbness, difficulty speaking. Taking PO well. Ambulating around room without problems. States has trouble getting urine stream started, but this is not unusual for him, especially after having anesthesia. Has voided multiple times post op. Review of Systems Review of Systems: All systems reviewed & are unremarkable except as noted in HPI & below Physical Exam Constitutional: WD/WN, vitals as above Neck: trachea midline R neck surgical incision C/D/I. Mild local soft edema and ecchymosis. Mildly tender. Respiratory: normal respiratory effort, lungs clear to auscultation Cardiovascular: Rate/Rhythm: regular rate and regular rhythm Vessels: femoral pulses present, posterior tibial pulses present, dorsalis pedis pulses present and radial pulses present; + abnormal peripheral pulses Extremities: normal capillary refill Gastrointestinal (Abdomen): Inspection/Auscultation: abdomen normal to inspection and normal bowel sounds Percussion/Palpation: abdomen soft; abdomen nontender Musculoskeletal: Extremities: extremities normal to inspection Skin: no rashes, warm and dry Neurologic: moves all extremities, + focal motor deficit (slightly weaker LUE than RUE) and awake; not confused Speech / Cognition: normal speech, no expressive aphasia and no receptive aphasia Psychiatric: A+Ox3, euthymic affect Results & Data ([facility]) Vital Signs (Past 12 Hours) Vital Signs Temp Pulse Resp BP Pulse Ox 01/27/22 08:20 66 20 01/27/22 08:10 66 16 01/27/22 08:00 65 14 01/27/22 07:50 68 01/27/22 07:46 67 01/27/22 07:40 68 17 01/27/22 07:30 59 L 16 131/70 92 01/27/22 07:20 63 13 95 01/27/22 07:10 58 L 94 01/27/22 07:00 36.6 C 127/63 01/27/22 06:00 53 L 14 128/63 85 L 01/27/22 05:30 53 L 12 127/69 92 01/27/22 05:00 58 L 15 134/62 89 L 01/27/22 04:30 58 L 10 L 125/59 L 93 01/27/22 04:00 56 L 15 125/57 L 93 01/27/22 03:01 59 L 24 129/66 96 01/27/22 03:00 61 20 94 01/27/22 02:30 59 L 16 119/54 L 93 01/27/22 02:00 56 L 17 107/50 L 91 01/27/22 01:32 63 19 105/52 L 93 01/27/22 01:00 55 L 14 111/49 L 90 01/27/22 00:30 60 15 112/57 L 89 L 01/27/22 00:00 36.5 C 56 L 16 113/49 L 90 01/26/22 23:30 61 18 113/51 L 93 01/26/22 23:00 54 L 15 108/47 L 94 01/26/22 22:32 54 L 01/26/22 22:30 55 L 15 108/46 L 94 01/26/22 22:00 75 26 H 96 01/26/22 21:59 64 16 142/70 H 97
--- NOTE | 2022-01-27 09:52 | Discharge Summary ---
Date of Service January 27, 2022 Admission HPI Per Admitting Provider [facility], [id number] Consultation Signed Patient:EMMY ALEXANDER Admit Date:01/21/22 MR#:[id number] Att Phy:Abraham Corado M.D. Acct ID:[id number] Tania Phy:Connor Edwards MD Date:1940 Fam Phy: Age:81 Location:2S Sex:M Room/Bed:[facility] cc: ~ *NOTICE TO RECEIVING REPUBLICAN/AGENCY This information is strictly Confidential and protected under [place] law. [place] law prohibits you from making any further disclosure of this information unless further disclosure is expressly permitted by the written consent of the person to whom it pertains or is authorized by law. A general authorization for the release of medical or other information is not sufficient for this purpose. Hospital accepts no responsibility if the information is made available to any other person, INCLUDING THE PATIENT. Date of Consultation January 22, 2022 Assessment & Plan (1) Stenosis of right internal carotid artery with cerebral infarction: This patient was found to have a severe 80% stenosis of his right internal carotid artery at the origin. This indeed correlates with the MRI finding of 2 small infarcts in the posterior right frontal lobe. At this point recommend carotid endarterectomy. This will be scheduled this coming week. I have discussed the risks options and benefits of the procedure with the patient. The patient understands the risks options and benefits and agrees to the procedure. He can be discharged meantime on Plavix and aspirin. If he develops more symptoms then he will need to come back to emergency room for urgent carotid endarterectomy. As of now he scheduled for Wednesday morning for his right carotid endarterectomy procedure. Thank you very much for letting us participate in the care of this patient. History of Present Illness Reason for Consultation: Severe right carotid artery stenosis Attending Physician: Abraham Corado MD History of Present Illness This patient is 81-year-old male who has a history of diabetes mellitus type 2, hypertension, hyperlipidemia, mild aortic stenosis, stage IV chronic kidney disease, hyperparathyroidism, benign prostatic hypertrophy, diabetic polyneuropathy, and anemia due to his chronic renal disease. He also has a known history of PFO. He presented to [facility] on 518 with left upper extremity weakness x1 day. He felt like his left arm was not usable. This was the primary event. He had never had this feeling prior to this. At this point he thinks his arm is markedly improved and is back to baseline. He does have numbness in both feet due to his polyneuropathy. This has not changed. He had no other neurological complaints at the time of admission. He denied any shortness of breath, abdominal pain, or chest pain at the time of admission. Allergies Allergy/AdvReac Type Severity Reaction Status Date / Time Penicillins Allergy Unknown HIVES Verified 01/21/22 09:55 SULFA DRUGS Allergy Unknown GI issues Uncoded 01/21/22 09:55 Home Medications Medication Instructions Recorded Confirmed Type amlodipine 5 mg tablet 5 mg PO QAM 01/02/19 01/21/22 History cholecalciferol (vitamin D3) 50 2,000 unit PO QAM 01/02/19 01/21/22 History mcg (2,000 unit) capsule furosemide 20 mg tablet 40 mg PO DAILY 01/02/19 01/21/22 History insulin glargine U-300 conc 300 50 unit SUBCUT BID 01/02/19 01/21/22 History unit/mL (1.5 mL) subcutaneous pen (Toujeo SoloStar U-300 Insulin) insulin lispro 100 unit/mL 40 unit SUBCUT AC 01/02/19 01/21/22 Hist ory subcutaneous pen (Humalog KwikPen (U-100) Insulin) omeprazole 20 mg capsule,delayed 20 mg PO QAM 01/02/19 2 History release pramlintide 2,700 mcg/2.7 mL 120 mcg SUBCUT BID 01/02/19 01/21/22 Hi story subcutaneous pen injector (SymlinPen 120) B alfuzosin 10 mg tablet,extended 10 mg PO DAILY 01/21/22 01/21/22 History release 24 hr allopurinol 100 mg tablet 100 mg PO BID 01/21/22 01/21/22 Histo ry aspirin 81 mg chewable tablet 81 mg PO DAILY 01/21/22 01/21/22 H istory coenzyme Q10 100 mg capsule 100 mg PO DAILY 01/21/22 01/21/22 His tory finasteride 5 mg tablet 5 mg PO DAILY 01/21/22 01/21/22 History levothyroxine 137 mcg tablet 137 mcg PO DAILY 01/21/22 01/21/22 Hi story losartan 50 mg tablet 50 mg PO DAILY 01/21/22 01/21/22 History omega-3 fatty acids 1,000 mg PO BID 01/21/22 01/21/22 History rosuvastatin 20 mg tablet 20 mg PO DAILY 01/21/22 01/21/22 Histo ry sildenafil 50 mg tablet 50 mg PO USEASDIRECTD 01/21/22 01/21/22 Histo ry Patient History Medical History Cardiac murmur HX OF PREVIOUSLY AUSCULTATED MURMUR. PT HAD ECHO AND CARDIAC WORKUP. FOLLOWS WITH DR. WAY (chronic kidney disease) stage 4, GFR 15-29 ml/min Diabetes mellitus, type 2 Diverticular disease Fatty liver GERD (gastroesophageal reflux disease) History of skin cancer EXCISION FROM THIGHHyperlipidemia Hypertension Hypothyroidism Secondary hyperparathyroidism Surgical History History of arthroscopy B/L SHOULDER REPAIRSHistory of cataract extraction with lens replacement History of cholecystectomy History of colonoscopy History of laminectomy CERVIAL LAMI S/T SPINAL STENOSIS.History of prostate surgery HX OF GREENLIGHT TURP 10+ YEARS AGOHistory of surgery on arm LIGAMENTHistory of tonsillectomy Family History Father Colorectal cancerMother No problems noted. Denies family history of Stroke Social History Smoking Status: Never smoker Cigarettes Per Day: 0; Second Hand Exposure: No; Hx Alcohol Use: Yes Alcohol type: other Hx Substance Use: No Preferred Language: Honduran Communication Ability: Effective Porter Sample Case Required: No Beliefs That Will Affect Care: None marital status: Current Living Situation: Spouse Current Living Situation Comment: How many Children do You have: 7 Other Information That Helps Us Care for You: No Feels Safe at Home: Yes Safety Concerns: Feels Safe At This Time Assistive Devices: None Review of Systems Review of Systems: All systems reviewed & are unremarkable except as noted in HPI & below Physical Exam Constitutional: WD/WN, vitals as above Eyes: reactive pupils; no eyelid abnormality ENMT: Mouth: no tongue abnormality Neck: trachea midline Respiratory: normal respiratory effort; no respiratory distress Auscultation: lungs clear to auscultation bilaterally Cardiovascular: Rate/Rhythm: regular rate and regular rhythm Heart Sounds: normal S1 and normal S2 Vessels: posterior tibial pulses present, dorsalis pedis pulses present and radial pulses present Gastrointestinal (Abdomen): normal bowel sounds, soft, nontender, no hepatosplenomegaly Musculoskeletal: no cyanosis or clubbing, extremities motor strength 5/5 Neurologic: CN's II-XI intact bilaterally and moves all extremities Speech / Cognition: normal speech Motor/Sensory: + sensory deficit (decreased sensation of feet); normal movement Cranial Nerves: PERRL, normal facial strength, tongue midline and able to rotate head bilaterally Psychiatric: Orientation: alert and oriented x 3 Results & Data ([facility]) Vital Signs (Past 12 Hours) Vital Signs Temp Pulse Resp BP Pulse Ox 01/22/22 11:14 36.7 C 66 18 174/85 H 94 01/22/22 07:01 36.7 C 65 18 167/87 H 96 01/22/22 03:51 36.6 C 60 18 154/77 H 98 Diagnostic Findings CTA neck-Severe (80%) stenosis of the proximal right internal carotid artery. Moderate plaque within the left carotid bifurcation without stenosis. Suboptimal evaluation of the vertebral artery origins due to motion artifact. MRI brain-Two small acute infarcts measuring up to 7 mm within the posterior right frontal lobe which would account for the patient's left arm weakness. No mass effect. No acute hemorrhage. Signed By: <Electronically signed by Jase Shane MD> 01/22/22 1452 Created:01/22/22 1440 The status of this report isSigned. Draft = Not yet reviewed or approved by Medical Physician. Signed = Reviewed and approved by Medical Physician. Admission Exam Per Admitting Provider Constitutional: WD/WN, vitals as above Eyes: reactive pupils; no eyelid abnormality ENMT: Mouth: no tongue abnormality Neck: trachea midline Respiratory: normal respiratory effort; no respiratory distress Auscultation: lungs clear to auscultation bilaterally Cardiovascular: Rate/Rhythm: regular rate and regular rhythm Heart Sounds: normal S1 and normal S2 Vessels: posterior tibial pulses present, dorsalis pedis pulses present and radial pulses present Gastrointestinal (Abdomen): normal bowel sounds, soft, nontender, no hepatosplenomegaly Musculoskeletal: no cyanosis or clubbing, extremities motor strength 5/5 Neurologic: CN's II-XI intact bilaterally and moves all extremities Speech / Cognition: normal speech Motor/Sensory: + sensory deficit (decreased sensation of feet); normal movement Cranial Nerves: PERRL, normal facial strength, tongue midline and able to rotate head bilaterally Psychiatric: Orientation: alert and oriented x 3 Principal Diagnosis 1. s/p R CEA 2. RICAS with CVA Discharge Exam Constitutional WD/WN, vitals as above Neck trachea midline Respiratory normal respiratory effort, lungs clear to auscultation Cardiovascular Rate/Rhythm: regular rate and regular rhythm Vessels: femoral pulses present, posterior tibial pulses present, dorsalis pedis pulses present and radial pulses present; + abnormal peripheral pulses Extremities: normal capillary refill Gastrointestinal (Abdomen) Inspection/Auscultation: abdomen normal to inspection and normal bowel sounds Percussion/Palpation: abdomen soft; abdomen nontender Musculoskeletal Extremities: extremities normal to inspection Skin no rashes, warm and dry Neurologic moves all extremities, + focal motor deficit (slightly weaker LUE than RUE) and awake; not confused Speech / Cognition: normal speech, no expressive aphasia and no receptive aphasia Psychiatric A+Ox3, euthymic affect Discharge Data Allergies Allergy/AdvReac Type Severity Reaction Status Date / Time Penicillins Allergy Intermediate HIVES Verified 01/26/22 06:34 Sulfa (Sulfonamide AdvReac Mild Gastrointestinal Verified 01/26/22 06:34 Antibiotics) Upset Consultations 01/26/22 13:26 Consult Acoustical Tile Patternmaker Routine Procedures Performed Operation Date: 01/26/22 08:00 <No data on this case meets the specified criteria> Operation Date: 01/26/22 08:00 Actual Procedures p Right Carotid Endarterectomy(Right) - Jase Shane MD Hospital Course (1) Status post carotid endarterectomy: Pt doing well post op day 1. Discussed with Dr Shane. Plan for d/c home today. Will follow up in office in 2 weeks. Total Time Total Time Spent Total Time Spent (In Minutes): 0 Discharge Plan Discharge Items Patient Disposition: Home - Self-Care Reason For Visit: RIGHT CARTOID STENOSIS WITH CVA Discharge Diagnosis: 1. s/p Right Carotid Endarterectomy 2. Right Carotid Stenosis with CVA Activity: Per Instructions section Non-emergency contact: Primary Care Provider and Surgeon Call non-emergency contact if: you have any medication questions, your pain is not controlled, your pain is concerning for you, you have a fever, your wound has increased redness and your wound has increased drainage Follow-up/Referrals: Connor Edwards MD [Primary Care Provider] - (Follow up within 2 weeks with PCP) Jase Shane MD [Physician] - (Follow up with Dr Shane or Lin Gross PA-C, within 2 weeks. ) Diet: Heart Healthy Addtl Attending Provider Instructions: SPECIAL CARE INSTRUCTIONS: Medications: * Continue to take Aspirin as directed. Incision Care: * You may shower, but do not rub incision. You may let the warm soapy water run over it. Be sure to dry the incision well after bathing. * Do not shave directly over the incision until it is healed. * DO NOT IMMERSE THE INCISION IN A TUB/POOL/etc. UNTIL HEALED. Restrictions: * Do not drive for at least one week or if you are still taking any narcotic pain medication. * Do not lift anything heavier than a gallon of milk for one week after going home. Possible Complications: * Numbness - It is normal to have some numbness around the incision. Numbness can extend beyond the incision to areas of the neck, ear and face. The numbness is due to bruising of nerves during the surgery and will gradually improve over a period of months. * Hoarseness/Difficulty Speaking and Swallowing - The bruising of nerves in the neck can also cause a hoarse voice, difficulty speaking or swallowing. This may improve over time, HOWEVER, if it continues for more than a few days please contact our office ([phone]). * Excessive Swelling - There will be some swelling immediately after surgery which usually resolves within one week. If you notice that the swelling is getting worse, notify your surgeon ([phone]). * Drainage/Bleeding - If there is any drainage or bleeding, it should be a very small amount (less than a teaspoon per day). If you have excessive bleeding or drainage from the incision, call your surgeon ([phone]) right away. ACTIVATION OF EMERGENCY MEDICAL SYSTEM: Call 911, immediately, if you experience any of the following: Warning Signs and Symptoms of Stroke: * Sudden numbness or weakness of the face, arm or leg, especially on one side of the body * Sudden confusion, trouble speaking or understanding * Sudden trouble seeing in one or both eyes * Sudden trouble walking, dizziness, loss of balance or coordination * Sudden severe headache with no cause Do not delay calling 911 if you experience any warning signs or symptoms of a stroke. Delay in seeking medical attention may affect what treatments can be given to you. Risk Factors for Stroke: You can reduce your chances of stroke by working with your medical provider to adopt a healthy lifestyle. Some specific ways to lower your chance of stroke are: * If you are a smoker, now is the time to stop smoking cigarettes * If you are diabetic, improve the control of your blood sugars * Avoid excessive amounts of alcohol * Control high blood pressure * Lose weight if you are overweight * Be sure to lead an active lifestyle * Eat a healthy diet low in salt, cholesterol and fat You should know about other risk factors for stroke that you are unable to control. These include: * Age 55 years or older * Male gender * Certain racial groups: , or / * Family History of Stroke, Mini stroke or Heart Attack * Sickle Cell Disease You will be receiving a call from the Vascular Surgery Nurse after you are discharged. FOLLOW UP VISIT: It is important for you to keep your follow up appointments with your medical provider. Keep any scheduled doctor appointments. Pending Studies at Discharge: No Stand-Alone Forms: My [facility], Smoking Cessation Medications and DC Order Prescriptions: New oxycodone-acetaminophen [Percocet] 5-325 mg Tablet 1 - 2 tab PO Q4H PRN (Reason: pain) Qty: 20 RF: 0 Continued amlodipine 5 mg Tablet 5 mg PO QAM RF: 0 furosemide 20 mg Tablet 40 mg PO QAM RF: 0 insulin lispro [Humalog KwikPen Insulin] 100 unit/mL Insulin Pen 40 unit SUBCUT AC RF: 0 SymlinPen 120 2,700 mcg/2.7 mL Pen Injector 120 mcg SUBCUT BID RF: 0 cholecalciferol (vitamin D3) 2,000 unit Capsule 2,000 unit PO QPM RF: 0 Toujeo SoloStar U-300 Insulin 300 unit/mL (1.5 mL) Insulin Pen 50 unit SUBCUT BID RF: 0 rosuvastatin [Crestor] 40 mg tablet 40 mg PO QPM RF: 0 turmeric root extract 500 mg Capsule 750 mg PO BID RF: 0 levothyroxine 137 mcg tablet 137 mcg PO QAM RF: 0 sildenafil 50 mg tablet 50 mg PO USEASDIRECTD PRN (Reason: Sexual Activity) RF: 0 allopurinol 100 mg tablet 100 mg PO BID RF: 0 aspirin 81 mg Tablet,Chewable 81 mg PO QAM RF: 0 finasteride 5 mg tablet 5 mg PO QPM RF: 0 alfuzosin 10 mg tablet extended release 24 hr 10 mg PO QAM RF: 0 losartan 50 mg tablet 50 mg PO QAM RF: 0 coenzyme Q10 100 mg Capsule 100 mg PO QAM RF: 0 omega-3 fatty acids Capsule 1,000 mg PO BID RF: 0 clopidogrel 75 mg Tablet 75 mg PO QAM Qty: 30 RF: 0 pantoprazole 40 mg Tablet,Delayed Release (Dr/Ec) 40 mg PO QAM Qty: 30 RF: 0 Discharge Orders: Discharge Order (Routine); Ordered 01/27/22 Ordered By: Lin Gross Admission Data Admit Date/Time: 01/26/22 07:35 Attending Provider: Jase Shane Admit Provider: Jase Shane Primary Care Provider: Connor Edwards Other Providers: Demarcus Garcia ; Adalberto Sexton ; Lance Evangelista ; Gustavo Mixon ; Cricket Ortega ; John Ron ; Kenya Hernandez ; Petar Ramos
== END 2022-01-27 10:48 | disposition home or self-care (01) | DRG 38 ==
LOC: ASU 06:10 → 1E 07:35